=== PATIENT | male | born 1980 | race Caucasian/White ===

== ENCOUNTER 2020-08-22 13:39 | Outpatient (REF) | payer MEDICAID, SELFPAY ==
[2020-08-22 14:33] LABS: MANUAL DIFF FLAG NO
[2020-08-22 14:37] LABS: Basophils Percent Auto 0.4 % (0-2); Eosinophils Absolute Auto 0.1 X10*3/uL (0.0-0.4); Eosinophils Percent Auto 0.8 % (0-4); Hematocrit 45.6 % (42-52); Hemoglobin 15.1 g/dl (14.0-18.0); Imm Gran Abs Auto 0.02 X10*3/uL (0.00-0.03); Imm Gran Pct Auto 0.3 % (0.0-0.4); Lymphocytes Absolute Auto 1.7 X10*3/uL (1.2-4.9); Lymphocytes Percent Auto 22.7 % (20-40); Mean Corpuscular HGB Conc 33.1 g/dl (31.0-36.0); Mean Corpuscular Hemoglobin 27.8 pg (27.0-33.0); Mean Corpuscular Volume 83.8 fL (80-98); Mean Platelet Volume 9.8 fL (9.4-12.4); Monocytes Absolute Auto 0.5 X10*3/uL (0.1-1.2); Monocytes Percent Auto 7.3 % (2-11); Neutrophils Absolute Auto 5.1 X10*3/uL (2.0-8.3); Neutrophils Percent Auto 68.5 % (45-73); Platelet Count 297 X10*3/uL (160-400); Red Blood Count 5.44 X10*6/uL (4.60-5.80); Red Cell Distribution Width 12.6 % (11.0-16.0); White Blood Count 7.4 X10*3/uL (4.8-10.8)
[2020-08-22 15:40] LABS: Alanine Aminotransferase 19 U/L (0-40); Albumin Level 4.6 g/dL (3.5-5.0); Alkaline Phosphatase 94 U/L (39-117); Anion Gap 12 (12-20); Aspartate Amino Transferase 17 U/L (5-37); Bilirubin Direct 0.3 mg/dL (0.0-0.5); Bilirubin Total 0.9 mg/dL (0.0-1.0); Carbon Dioxide 32 mmol/L (22-29); Chloride 101 mmol/L (96-108); Potassium 4.1 mmol/l (3.3-5.1); Sodium 141 mmol/L (135-145); Total Protein 7.4 g/dL (6.5-8.0)
[2020-08-29 02:47] LABS: JCV Antibody POSITIVE; JCV Index Value 1.15
== END 2020-08-22 13:40 | disposition home or self-care (01) ==
LOC: HO.LAB 13:39
PROVIDERS: PCP Family Medicine; Visit Provider Psychiatry & Neurology Neurology
DX: G35 Multiple sclerosis (principal)
CPT/HCPCS: 36415; 80051; 80076; 85025; 86711

== ENCOUNTER 2021-02-19 11:29 | Outpatient (REF) | payer MEDICAID, SELFPAY ==
[2021-02-19 12:17] LABS: MANUAL DIFF FLAG NO
[2021-02-19 12:25] LABS: Basophils Percent Auto 0.5 % (0-2); Eosinophils Percent Auto 0.5 % (0-4); Hematocrit 43.8 % (42-52); Hemoglobin 14.5 g/dl (14.0-18.0); Imm Gran Abs Auto 0.02 X10*3/uL (0.00-0.03); Imm Gran Pct Auto 0.3 % (0.0-0.4); Lymphocytes Absolute Auto 1.5 X10*3/uL (1.2-4.9); Lymphocytes Percent Auto 25.1 % (20-40); Mean Corpuscular HGB Conc 33.1 g/dl (31.0-36.0); Mean Corpuscular Hemoglobin 27.9 pg (27.0-33.0); Mean Corpuscular Volume 84.2 fL (80-98); Mean Platelet Volume 9.9 fL (9.4-12.4); Monocytes Absolute Auto 0.4 X10*3/uL (0.1-1.2); Monocytes Percent Auto 7.3 % (2-11); Neutrophils Absolute Auto 3.9 X10*3/uL (2.0-8.3); Neutrophils Percent Auto 66.3 % (45-73); Platelet Count 286 X10*3/uL (160-400); Red Cell Distribution Width 12.4 % (11.0-16.0); White Blood Count 5.9 X10*3/uL (4.8-10.8)
[2021-03-02 23:47] LABS: JCV Antibody POSITIVE; JCV Index Value 1.09
== END 2021-02-19 11:30 | disposition home or self-care (01) ==
LOC: HO.LAB 11:29
PROVIDERS: PCP Family Medicine; Visit Provider Psychiatry & Neurology Neurology
DX: G35 Multiple sclerosis (principal)
CPT/HCPCS: 36415; 85025; 86711

== ENCOUNTER 2022-02-18 10:29 | Outpatient (REF) | payer MEDICAID, SELFPAY ==
[2022-02-18 10:49] LABS: MANUAL DIFF FLAG NO
[2022-02-18 11:56] LABS: Basophils Percent Auto 0.4 % (0-2); Eosinophils Absolute Auto 0.1 X10*3/uL (0.0-0.4); Eosinophils Percent Auto 1.2 % (0-4); Hematocrit 44.6 % (42.0-52.0); Hemoglobin 14.5 g/dl (14.0-18.0); Imm Gran Abs Auto 0.02 X10*3/uL (0.00-0.03); Imm Gran Pct Auto 0.4 % (0.0-0.4); Lymphocytes Absolute Auto 1.8 X10*3/uL (1.2-4.9); Mean Corpuscular HGB Conc 32.5 g/dl (31.0-36.0); Mean Corpuscular Hemoglobin 27.3 pg (27.0-33.0); Mean Corpuscular Volume 83.8 fL (80.0-98.0); Mean Platelet Volume 10.2 fL (9.4-12.4); Monocytes Absolute Auto 0.4 X10*3/uL (0.1-1.2); Monocytes Percent Auto 7.3 % (2-11); Neutrophils Absolute Auto 2.8 x10*3/uL (2.0-8.3); Neutrophils Percent Auto 55.7 % (45-73); Platelet Count 238 X10*3/uL (160-400); Red Blood Count 5.32 X10*6/uL (4.60-5.80); Red Cell Distribution Width 12.5 % (11.0-16.0); White Blood Count 5.1 X10*3/uL (4.8-10.8)
[2022-02-18 12:24] LABS: Alanine Aminotransferase 19 U/L (0-40); Albumin Level 4.5 g/dL (3.5-5.0); Alkaline Phosphatase 82 U/L (39-117); Aspartate Amino Transferase 20 U/L (5-37); Bilirubin Direct 0.3 mg/dL (0.0-0.5); Bilirubin Total 0.7 mg/dL (0.0-1.0); Total Protein 7.2 g/dL (6.5-8.0)
== END 2022-02-18 10:30 | disposition home or self-care (01) ==
LOC: HO.LAB 10:29
PROVIDERS: Visit Provider Psychiatry & Neurology Neurology
DX: G35 Multiple sclerosis (principal)
CPT/HCPCS: 36415; 80076; 85025

== ENCOUNTER 2023-12-22 13:00 | Outpatient (REF) | payer OTHER, SELFPAY ==
[2023-12-22 13:13] LABS: MANUAL DIFF FLAG NO
[2023-12-22 14:19] LABS: Basophils Percent Auto 0.4 % (0-2); Eosinophils Absolute Auto 0.1 X10*3/uL (0.0-0.4); Eosinophils Percent Auto 2.1 % (0-4); Hematocrit 46.8 % (42.0-52.0); Hemoglobin 15.4 g/dl (14.0-18.0); Imm Gran Abs Auto 0.01 X10*3/uL (0.00-0.03); Imm Gran Pct Auto 0.2 % (0.0-0.4); Lymphocytes Absolute Auto 1.7 X10*3/uL (1.2-4.9); Lymphocytes Percent Auto 32.9 % (20-40); Mean Corpuscular HGB Conc 32.9 g/dl (31.0-36.0); Mean Corpuscular Hemoglobin 27.3 pg (27.0-33.0); Mean Platelet Volume 9.6 fL (9.4-12.4); Monocytes Absolute Auto 0.3 X10*3/uL (0.1-1.2); Monocytes Percent Auto 6.4 % (2-11); Platelet Count 276 X10*3/uL (160-400); Red Blood Count 5.64 X10*6/uL (4.60-5.80); Red Cell Distribution Width 12.8 % (11.0-16.0); White Blood Count 5.2 X10*3/uL (4.8-10.8)
[2023-12-22 14:31] LABS: Alanine Aminotransferase 26 U/L (0-40); Albumin Level 4.4 g/dL (3.5-5.0); Alkaline Phosphatase 103 U/L (39-117); Anion Gap 12 (12-20); Aspartate Amino Transferase 22 U/L (5-37); Bilirubin Direct 0.2 mg/dL (0.0-0.5); Bilirubin Total 0.6 mg/dL (0.0-1.0); Blood Urea Nitrogen 15 mg/dL (9-16); Calcium 9.7 mg/dL (8.4-10.2); Carbon Dioxide 33 mmol/L (22-29); Chloride 102 mmol/L (96-108); Estimated Glomerular Filt Rate > 60; Glucose Random 93 mg/dL (60-115); Potassium 3.8 mmol/L (3.3-5.1); Sodium 143 mmol/L (135-145); Total Protein 7.5 g/dL (6.5-8.0)
[2023-12-25 22:33] LABS: JCV Antibody POSITIVE; JCV Index Value 2.35
== END 2023-12-22 13:01 | disposition home or self-care (01) ==
LOC: HO.LAB 13:00
PROVIDERS: Visit Provider Psychiatry & Neurology Neurology
DX: G35 Multiple sclerosis (principal)
CPT/HCPCS: 36415; 80048; 80076; 85025; 86711

== ENCOUNTER 2024-03-13 18:01 | Emergency (ER) | payer OTHER, SELFPAY ==
[2024-03-13 18:05] VITALS: BP 131/92; PULSE 81; RESP 14; TEMP 36.4; O2SAT 96; BMI 22.8
--- NOTE | 2024-03-13 21:24 | ED_ITS ---
History of Present Illness General Chief Complaint: Epistaxis Stated Complaint: rt side nose bleed 3x todays Time Seen by Provider: 03/13/24 21:22 Source: patient Mode of arrival: ambulatory Limitations: no limitations History of Present Illness HPI Narrative: Patient with chronic allergic rhinitis uses Flonase nasal spray noticed bleeding from the right nostril a week ago and again today. No history of epistaxis in the past no bleeding from any other place at this time on arrival patient's bleeding has decreased and almost stopped Related Data Allergies Allergy/AdvReac Type Severity Reaction Status Date / Time Penicillins [PENICILLINS] Allergy Unknown UNKNOWN Verified 03/13/24 18:11 Review of Systems Review of Systems: Yes all other systems are reviewed and are negative [facility] Social History Social History Advance Directives: No Advance Directives Information Provided: No Do you have a plan to hurt others: No Plan Physical Exam Vital Signs: Vital Signs: Last Vital Signs Temp 97.6 F 03/13/24 22:52 Pulse 81 03/13/24 22:52 Resp 14 03/13/24 22:52 BP 131/92 H 03/13/24 22:52 Pulse Ox 96 03/13/24 22:52 O2 Del Method Room Air 03/13/24 22:52 BMI result Body Mass Index 22.8 Appearance: Alert. Oriented X3. No acute distress. Eyes: No pallor or icterus ENT: Pharynx normal. Oral Mucosa moist mild oozing from the right nostril anterior septum area Neck: Normal inspection. Neck supple. CVS: Normal heart rate and rhythm. Pulses normal. Respiratory: No respiratory distress. Equal air entry bilateral, Abdomen: Soft and nontender. Skin: Skin warm and dry. Normal skin color. Normal skin turgor. Extremities: No lower extremity edema. No calf tenderness Neuro: Oriented X 3. Medications Administered Discontinued Medications Generic Name Dose Route Start Last Admin Trade Name Freq PRN Reason Stop Dose Admin Silver Nitrate 1 appl 03/13/24 21:36 03/13/24 21:48 Silver Nitrate Applicator Stick..Ea. TOPICAL 03/13/24 21:37 1 appl ONCE ONE Administration Medical Decision Making Medical Decision Making MDM Narrative: Patient with anterior epistaxis with minor oozing silver nitrate was used to cauterize the area patient has stopped bleeding Procedures Epistaxis Control Nostril: Yes right Direct inspection: Yes anterior source identified Direct inspection method: Yes otoscope Epistaxis treatment: Yes silver nitrate cautery Results of treatment: Yes bleeding controlled Complications: Yes none Discharge Plan Discharge Clinical Impression: Epistaxis Patient Disposition: Home, Self-Care Instructions: Nosebleed (ED) Additional Instructions: Local care as advised Interventions: ED Discharge Assessment Last Done: 03/13/24 22:52 Discharge Date/Time: 03/13/24 22:53 Print Language: Belarusian
[2024-03-13] MEDS: Silver Nitrate Applicator STICK..EA. 1 APPL TOPICAL (21:48)
[2024-03-13 22:52] VITALS: BP 131/92; PULSE 81; RESP 14; TEMP 36.4; O2SAT 96
== END 2024-03-13 22:53 | disposition home or self-care (01) ==
PROVIDERS: Emergency Provider Internal Medicine; PCP Family Medicine
DX: R04.0 Epistaxis (principal)
CPT/HCPCS: 30901; 99282; 99283

== ENCOUNTER 2025-05-23 11:53 | Outpatient (AMB) | payer OTHER, MEDICAID, SELFPAY ==
--- OUTSIDE RECORDS SUMMARY | 2025-05-17 23:59 | XMS_ITS | Continuity of Care Document ---
Author Organization [facility] Address [address] [place] [address]- Care Team Providers Care Dealership Manager Name Role Phone Parker Rocha MD Primary Care Physician [id number] Date(s[facility] 05/10/25 - 05/17/25 [facility] [address] [place] [address]- Encounter Diagnosis Low energy(Discharge Diagnosis) - 05/10/25 Attending Physician: Parker Rocha MD Encounter Type: Office Visit Allergies, Adverse Reactions, Alerts Substance Criticality Severity Reaction Reaction Severity Status topiramate anxiety Active penicillins Active Immunizations Given and Recorded Vaccine Date Status Refusal Reason SARS-CoV-2 (COVID-19) mRNA BNT-162b2 vac 10/11/21 Recorded SARS-CoV-2 (COVID-19) mRNA BNT-162b2 vac 03/11/21 Recorded SARS-CoV-2 (COVID-19) mRNA BNT-162b2 vac 02/18/21 Recorded tetanus-diphtheria toxoids (Td) 1 01/09/20 Given tetanus-diphtheria toxoids (Td) 05/24/10 Recorded influenza virus vaccine, inactivated 08/29/16 Give n influenza virus vaccine, inactivated 12/14/12 Juan rded hepatitis B adult vaccine 12/06/10 Recorded hepatitis B adult vaccine 10/08/10 Recorded hepatitis B adult vaccine 05/24/10 Recorded Measles/Mumps/Rubella Virus Vaccine 05/24/10 Recor ded Measles/Mumps/Rubella Virus Vaccine 04/23/10 Recor ded tetanus/diphtheria/pertussis, acel(Tdap) 04/23/10 Recorded 1Result Comment: [id number] Medications cholecalciferol 1000 intl units oral capsule 1 capsule = 1,000 International_Units, By Mouth, Daily, # 90 capsule, 3 Refills, Maintenance, 08/29/16 10:36:07 AM EDT, Capsule, [id number] Start Date: 08/29/16 Stop Date: 08/24/17 Status: Ordered Quantity: 90.0 Unit: capsule Repeat number: 4 diclofenac 3% topical gel = 0.5 Gm, Topically, 2 times a day, # 50 Gm, 1 Refills, Maintenance, 02/16/25 2:07:00 PM EDT, Gel, [id number], Partial fill upon patient request if the prescription is for a schedule II opioiddrug., 0.5 Gm Topically 2 times a day, 148.5, cm, 02/16/25 13:34:00 EDT, Height Start Date: 02/16/25 Status: Ordered Quantity: 50.0 Unit: g Repeat number: 2 Indications: Chest pain, unspecified; Tecfidera 240 mg oral delayed release capsule 1 capsule = 240 mg, By Mouth, 2 times a day, 0 Refills, Maintenance, 09/22/17 3:57:37 PM EST Start Date: 09/22/17 Status: Ordered Repeat number: 1 Problem List Condition Confirmation Course Effective Dates Status H ealth Status Informant Developmental dysplasia of hip Confirmed Active History of poliomyelitis Confirmed Active Migraine Confirmed Active Multiple sclerosis Confirmed Active 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 Severe scoliosis Confirmed Active Diagnosis Diagnosis Type Effective Dates Health Status Cl[facility] Service Informant Low energy Discharge Diagnosis 05/10/25 Social History Social History Type Response Smoking Status Never smoker entered on: 03/22/18 Sex Sex Representation Male (finding) Patient Care team information Care Team Personnel Name: Parker Rocha MD Position: [facility] Physician - Primary Care Member Role: PCP Address: [address] [place] [address] Telecom: Care Team Related Persons Name: TK MADSEN Name: HELENA ALMENDAREZ Name: ROSALINDA SIFUENTES Insurance Providers Guarantor name: JUSTIN MODI Health Plan Information #: 1 Payer: [employer] [facility] Payer Identifier: STELLA Member Number: [id number] Group Number: [id number] Subscriber Identifier: [id number] Relationship to Subscriber: self Coverage Type: Commercial Indemnity Coverage Verification Date: NA Telecom: NA Address: Health Plan Information #: 2 Payer: [facility] [employer] Payer Identifier: NA Member Number: [id number] Group Number: Subscriber Identifier: [id number] Relationship to Subscriber: self Coverage Type: MEDICAID Coverage Verification Date: NA Telecom: NA Address: NA
--- NOTE | 2025-05-23 11:55 | A.OFFVIS_ITS ---
Intake Visit Reasons: MS Allergies Penicillins (PENICILLINS) Allergy (Unknown, Verified 05/23/25 12:16) UNKNOWN Medication List - Last Reconciled 05/23/25 by Marii Acuña CNP dimethyl fumarate (Tecfidera) 240 mg PO BID HPI Comments Details: He was doing okay. He was still having GI upset with Tecfidera if he does not have a full stomach and has been taking medication once a day about 5-6x/week instead of twice a day due to GI side effect. He still occasionally gets an itchy rash. Previously, he wanted to continue with Tecfidera and would consider switching to injectable form. No new MS symptoms. No new weakness. Left facial numbness resolved. No numbness in bottom of left foot any more. It may happen only if he is overtired or stressed. Fatigue has improved. Sleep was okay. Few occasional migraines, which may be triggered by stress or missing meal. Using Excedrin as needed which helps. GI work up was negative. Occasional low back sharp pains and tightness in back muscles. Considering spinal surgery for scoliosis. Had a son in 2023. All MRIs were reviewed, including C spine from Dec and the brain MRI from 06/18/17. In August 2016 he woke up with vertigo, nausea and ataxia but continued for 7-10 days and then resolved. In September 2016 he had an MRI of the brain which was consistent with MS. A second MRI of the brain was done in December of 2016 and showed some additional lesions. No gadolinium was used either. Subsequently, in March 2017 he had MRI of his cervical, thoracic and lumbar spine which was inadequate because of severe kyphosis and scoliosis. He did not have an MRI with gadolinium of the brain. He was seen by Dr. Sanjana Roach at the [facility] and the was not started any medications at this time.He then had an episode where he felt some numbness in his tongue, as well as some left-sided numbness which has gotten better. He has no previous neurological symptoms prior to August of 2016. His energy level is good. No problems with his bladder or bowel control. [facility] Medical History (Updated 05/23/25 @ 11:59 by Marii Acuña CNP) Migraine Scoliosis Multiple sclerosis Review of Systems Const Denies chills, Denies daytime sleepiness, Denies difficulty sleeping, Denies fatigue, Denies fever(s), Denies frequent falls, Denies headache(s), Denies increased appetite, Denies poor appetite, Denies snoring, Denies weakness, Denies weight gain and Denies weight loss Eyes Denies loss of vision ENT Denies vertigo, Denies dizziness, Denies headache(s) and Denies neck pain Card Denies chest pain at rest, Denies chest pain with activity, Denies syncope, Denies leg edema, Denies palpitations, Denies dyspnea and Denies dyspnea on exertion Resp Denies cough, Denies dyspnea, Denies dyspnea on exertion and Denies snoring GI Denies abdominal pain, Denies constipation, Denies heartburn, Denies diarrhea and Denies nausea Denies urinary frequency, Denies urinary incontinence and Denies urinary urgency Musc Denies abnormal gait, Reports back pain, Denies myalgias, Denies arthralgias, Denies neck pain, Denies numbness and Denies tingling Neuro Denies abnormal gait, Denies vertigo, Denies dizziness, Denies syncope, Denies frequent falls, Denies headache(s), Denies lack of coordination, Denies loss of vision, Denies memory loss, Denies numbness, Denies Other visual disturbances, Denies restless legs, Denies seizure-like activity, Denies tingling, Denies paresthesias, Denies tremor(s) and Denies weakness Psych Denies anxiety, Denies depression, Denies auditory hallucinations, Denies memory loss and Denies visual hallucinations Endo Denies fatigue and Denies palpitations Physical Exam Const Other: General Appearance:? normal, in no acute distress. Heart:? S1, S2 normal, no murmurs. Lungs:? clear anteriorly and posteriorly. Musculoskeletal:? normal. Extremities:? no edema. Psych:? alert, oriented, cognitive function intact, cooperative with exam. Neuro Other: Abnormal Neurological Findings:?Kyphoscoliosis of the thoracic spine. Left shoulder abduction weakness. Atrophy of left deltoid and right leg. Weakness of dorsiflexion and plantarflexion of the right foot. Left-sided hyperreflexia in the upper and lower extremity with extensor plantar response Mental Status: alert and oriented X 3. Normal attention, orientation, memory, and affect. Cranial Nerves: Pupils are equal, round, and reactive to light. External ocular muscles are intact. Visual valles are full, no ptosis. Face is symmetrical, no facial weakness or droop. Facial sensations are normal. Tongue protrudes in midline. Palate elevates symmetrically. Shoulder shrugging is normal Motor Examination: As above. Straight Leg Raisin degrees. Sensory Exam: Normal light touch, temperature, pinprick, vibration, and joint- position sensations. Rhomberg sign is absent. Coordination: No ataxia. No titubation. Mpswza-ab-eqrm, jzuw-orns-wxov test, and rapid alternating movements were normal. Gait Exam: With limp Cerebellar Signs: Uvwvde-rq-gbnb and mogg-fg-onne is normal. No dysdiadochokinesia. Extrapyramidal System: No tremor, rigidity with normal facial expressions. No bradykinesia. No bradyphrenia. Normal arm swing and posture. No propulsion or retropulsion. Speech: Normal. No dysphasia or dysarthria. Results Reviewed Results Reviewed: MRI of the brain from September 2016 and December 2016 were reviewed. They show multiple flair hyperintensities in the right cerebral peduncle middle and superior. Multiple periventricular lesions the Feliz's fingers and a relatively large lesion in the deep white matter in the left frontoparietal region. There appears to be a couple of additional lesions between September and December. MRI of the spine was in adequate. 06/18/17 MRI brain shows multiple periventricular and brainstem lesions of MS . No enhancing lesions. Follow up MRI brain an dcervical spine with and without Bulmaro prior to next visit. 08/26 C spine MRI shows no MS lesions. Tiny syrinx unchanged 08/26 Brain MRI c/w MS with stable lesions and possibly 2 new lesions in left frontal and kristen region. No enhancement. 01/24/20 Brain MRI stable with no new lesions or enhancement 02/26/21 Labs Ok . JCV 1.09 08/25/23 MRI brain stable with no enhancing lesions. Assessment & Plan Assessment & Plan (1) Multiple sclerosis: Code(s): G35 - Multiple sclerosis Category: Medical Plan: He was having GI side effect with Tecfidera, along with occasional itchy rash, and was taking medication once a day most days of the week instead of twice a day as prescribed due to GI side effects if he did not have full stomach, and was therefore not getting full benefit of medication. He denied any new or worsening MS symptoms. Other DMTs for MS discussed, including injectable or IV. He was not interested in self-injectable medications. He would consider IV medication such as Tysabri or Ocrevus, but was concerned about possible side effects. He felt he was managing well on current medication despite having side effects impacting compliance. MRI brain with and without contrast ordered to determine if there are any new lesions and discuss medications further at follow up. (2) Migraine: Code(s): G43.909 - Migraine, unspecified, not intractable, without status migrainosus Category: Medical Qualifiers: Intractability: not intractable Migraine type: unspecified Status migrainosus presence: without status migrainosus Qualified Code(s): G43.909 - Migraine, unspecified, not intractable, without status migrainosus Plan: May continue Excedrin as needed. Orders: Orders MR head/brain wo/w con Today G35 - Multiple sclerosis Coding Level of Care Code Est Pt Level 4 (36388) Diagnoses Multiple sclerosis G35 Migraine without status migrainosus, not intractable, unspecified migraine type G43.909 Intractability: not intractable Migraine type: unspecified Status migrainosus presence: without status migrainosus
--- OUTSIDE RECORDS SUMMARY | 2025-05-23 13:11 | XMS_ITS | Clinical Summary ---
Author Organization [facility] [place] [address] Care Team Providers Care Automatic Tire Tester Name Role Phone Kiley Donis MD Primary Care Provider Medical History Medical History Date Comments Esophageal reflux DX:Esophageal reflux Bloating DX:Bloating H. pylori infection DX:H. pylori infection Social History Tobacco Use Types Packs/Day Years Used Date Smoking Tobacco: Never Assessed Sex and Gender Information Value Date Recorded Sex Assigned at Not on file Legal Sex Male 8:13 PM EST Gender Identity Not on file Sexual Orientation Not on file Obstetrics History Last Filed Vital Signs Vital Sign Reading Time Taken Comments Blood Pressure 108/68 12/24/2023 11:33 AM EST Pulse 68 10/23/2022 10:29 AM EST Temperature - - Respiratory Rate - - Oxygen Saturation - - Inhaled Oxygen Concentration - - Weight 53.3 kg (117 lb 6.4 oz) 12/24/2023 11:33 AM EST Height 152.4 cm (5') 12/24/2023 11:33 AM EST Body Mass Index 22.93 12/24/2023 11:33 AM EST Plan of Treatment Health Maintenance Due Date Last Done Comments DTaP,Tdap,and Td Vaccines (1 - Tdap) 2001 Hepatitis B Vaccines (1 of 3 - 19+ 3-dose series) 2001 Cholesterol Screening (Lipid Panel) 11/01/2022 Depression Screening 11/01/2022 HIV Screening 11/01/2022 Hepatitis C Screening 11/01/2022 Social Influencers of Health Screening 11/01/2022 COVID-19 Vaccine ( - 2023-2 5 season) 2024 Influenza Vaccine (#1) 2025 HIB Vaccines Aged Out No longer eligi ble based on patient's age to complete this topic HPV Vaccines Aged Out No longer eligi ble based on patient's age to complete this topic Hepatitis A Vaccines Aged Out No long er eligible based on patient's age to complete this topic IPV Vaccines Aged Out No longer eligi ble based on patient's age to complete this topic MMR Vaccines Aged Out No longer eligi ble based on patient's age to complete this topic Meningococcal ACWY Vaccine Aged Out N o longer eligible based on patient's age to complete this topic Meningococcal B Vaccine Aged Out No l onger eligible based on patient's age to complete this topic Pneumococcal Vaccine: Pediat rics (0 to 5 Years) and At-Risk Patients (6 to 49 Years) Aged Out No longer eligible b ased on patient's age to complete this topic RSV Immunization Patients Un dali 20 months Aged Out No longer eligible b ased on patient's age to complete this topic Varicella Vaccines Aged Out No longer eligible based on patient's age to complete this topic Care Teams Automatic Tire Tester Relationship Specialty Start Date End Date Kiley Donis MD PCP - General Internal Medicine 09/02/22
--- OUTSIDE RECORDS SUMMARY | 2025-05-23 13:11 | XMS_ITS | Clinical Summary ---
Author Organization [facility] Address [address] [place] [address] Care Team Providers Care Forepart Reducer Name Role Phone Glenis Maria PA-C Primary Care Provider [phone] Source Comments PLEASE NOTE, if this patient is a minor, it may be UNLAWFUL to discuss sensitive information that is contained in these records (such as FAMILY PLANNING, MENTAL HEALTH or SUBSTANCE ABUSE) with the minor patient's parent or other person without the patient's specific authorization.[facility] Allergies Active Allergy Reactions Criticality Noted Date Comments Penicillins 10/24/2014 Medications aspirin-acetamin ophen-caffeine (EXCEDRIN MIGRAINE) 250-250-65 mg per tabletIndication s:Bilateral headaches Take 1 Tab by mouth every 6 (six) hours as needed for pain. 60 Tab 1 09/17/2015 Active Active Problems Problem Noted Date Diagnosed Date History of nephrolithiasis, left 201201/25/2015 Overview (01/25/2015): F/u urology. Post-polio muscle weakness 10/24/2014 Overview (10/24/2014): History of left hip surgery 1984 in [place] Chronic left hip pain 10/24/2014 Migraines Severe dextroscoliosis of thoracolumbar junction Overview (01/18/2016): Began at age 5 after being dx with polio. MRI Lumbar spine 01/21/2013 = severe dextroscoliosis thoracolumbar junction Immunizations Immunization Administration Dates Next Due Hep B, Adult/Adol (FEXIONZ-K-ZSPRG/RECOMBIVAX-ADULT) 12/06/2010,10/08/2010,05/24/2010 INFLUENZA, SEASONAL, INJECTABLE 12/14/2012 MMR (MMR II/Priorix) 05/24/2010,04/23/2010 TDAP 04/23/2010 Td (adult),2 Lf tetanus toxo id (TDVAX), preservative free 05/24/2010 Family History Relation Name Status Comments Father Alive Mother Alive Social History Tobacco Use Types Packs/Day Years Used Date Smoking Tobacco: Former Smokeless Tobacco: Never Comments:smoked very very li ghtly in the past 2012 Alcohol Use Standard Drinks/Week Comments No 0 (1 standard drink = 0.6 oz pur e alcohol) Social Connections Answer Date Recorded Social Connections and Isolation 0 07/02/2019 Financial Resource Strain Answer Date R ecorded Financial Resource Strain 0 2018 Stress Answer Date Recorded Stress 0 07/02/2019 Physical Activity Answer Date Recorded Physical Activity 0 07/02/2019 Food Insecurity Answer Date Recorded Food 0 07/02/2019 Transportation Needs Answer Date Record ed Transportation 0 07/02/2019 Housing Stability Answer Date Recorded Housing 0 07/02/2019 Safety and Environment Answer Date Juan rded Safety 0 07/02/2019 Utilities Answer Date Recorded Utilities 0 07/02/2019 Employment Answer Date Recorded Employment 0 07/02/2019 Sex and Gender Information Value Date Recorded Sex Assigned at Not on file Legal Sex Male 11:36 AM PDT Gender Identity Not on file Sexual Orientation Not on file Occupation Industry Job Start Date Job End Date [employer] Not on file Not on file Not on file Last Filed Vital Signs Vital Sign Reading Time Taken Comments Blood Pressure 124/80 01/18/2016 9:06 AM EST Pulse 80 01/18/2016 9:06 AM EST Temperature 36.4 C (97.5 F) 01/18/2016 9:06 AM EST Respiratory Rate 14 01/18/2016 9:06 AM EST Oxygen Saturation - - Inhaled Oxygen Concentration - - Weight 54 kg (119 lb) 01/18/2016 9:06 AM EST Height 149.9 cm (4' 11 ) 01/18/2016 9:06 AM EST Body Mass Index 24.04 01/18/2016 9:06 AM EST Plan of Treatment Not on file Insurance [place] MEDICAID Care Teams Forepart Reducer Relationship Specialty Start Date End Date Glenis Maria PA-C [address] [place] [address] PCP - General 01/04/19
== END 2025-05-23 12:33 | disposition home or self-care (01) ==
LOC: HO.HSM 11:53
PROVIDERS: PCP Family Medicine; Referring Provider Family Medicine; Visit Provider Registered Nurse
DX: G35 Multiple sclerosis (principal); G43.909 Migraine, unspecified, not intractable, without status migrainosus
CPT/HCPCS: 99214

== ENCOUNTER 2025-07-07 10:12 | Outpatient (AMB) | payer OTHER, MEDICAID, SELFPAY ==
--- OUTSIDE RECORDS SUMMARY | 2010-09-20 01:00 | XMS_ITS | Encounter Summary ---
Author Organization [facility] Address [address] [facility] [address] [place] [phone] Phone Care Team Providers Care Print Line Tailer Name Role Phone Unavailable Primary Care Provider Unavailabl e Encounter Details Date Type Department Care Team ([facility] Contact Info) Description 09/20/2010 Hospital Encounter [facility] 55 [place] [address] Jorge Schultz MD, PhD [address] [place] [address] Social History Tobacco Use Types Packs/Day Years [...] OUTSIDE(NO INTERPRETATION) (09/20/2010 12:00 AM EST) Narrative [facility] - 02/02/2019 12:01 PM EDT This study is for PACS storage only and not for interpretation. us Jorge Schultz MD, PhD IMG OUTSIDE IMAGING W/OUT IN TERPRETATION Final Result [facility] documented in this encounter Visit Diagnoses Not on filedocumented in this encounter Additional Source Comments The information contained in this document represents components of the legal health record. It is not the complete legal health record.[facility]
--- OUTSIDE RECORDS SUMMARY | 2010-12-24 01:00 | XMS_ITS | Encounter Summary ---
Author Organization [facility] Address [address] [facility] [address] [place] [address] Phone Care Team Providers Care Banquet Bartender Name Role Phone Unavailable Primary Care Provider Unavailabl e Encounter Details Date Type Department Care Team ([facility] Contact Info) Description 12/24/2010 Hospital Encounter [facility] 55 [place] [address] Jorge Schultz MD, PhD [address] [place] [address] [email or web address] Social History Tobacco Use Types Packs/Day Years [...] Name Priority Date/Time Associated Diagnosis Comments XR LOWER EXTREMITY OUTSIDE (NO INTERPRETATION) Routine 12/24/2010 12:00 AM EST documented in this encounter Results * XR Lower Extremity Outside (No Interpretation) (12/24/2010 12:00 AM EST) Narrative [facility] [place] [place] - 02/02/2019 12:01 PM EDT This study is for PACS storage only and not for interpretation. us Jorge Schutlz MD, PhD IMG OUTSIDE IMAGING W/OUT IN TERPRETATION Final Result [facility] [place] [place] documented in this encounter Visit Diagnoses Not on filedocumented in this encounter Additional Source Comments The information contained in this document represents components of the legal health record. It is not the complete legal health record.[facility]
--- OUTSIDE RECORDS SUMMARY | 2013-01-19 | XMS_ITS | Encounter Summary ---
Author Organization [facility] Address [address] [facility] [address] [place] [address] Phone Care Team Providers Care Trainer Name Role Phone Unavailable Primary Care Provider Unavailabl e Encounter Details Date Type Department Care Team ([facility] Contact Info) Description 01/19/2013 Hospital Encounter [facility] 55 [place] [address] Jorge Schultz MD, PhD [address] [place] [address] Social History Tobacco Use Types Packs/Day Years [...] OUTSIDE(NO INTERPRETATION) (01/19/2013 12:00 AM EDT) Narrative [facility] [place] - 02/02/2019 12:00 PM EDT This study is for PACS storage only and not for interpretation. us Jorge Schultz MD, PhD IMG OUTSIDE IMAGING W/OUT IN TERPRETATION Final Result [facility] [place] documented in this encounter Visit Diagnoses Not on filedocumented in this encounter Additional Source Comments The information contained in this document represents components of the legal health record. It is not the complete legal health record.[facility]
--- OUTSIDE RECORDS SUMMARY | 2013-01-21 | XMS_ITS | Encounter Summary ---
Author Organization [facility] Address [address] [facility] [address] [place] [address] Phone Care Team Providers Care Procedures Rn Name Role Phone Unavailable Primary Care Provider Unavailabl e Reason for Visit * MRI/CAT Scan - Closed Specialty Diagnoses / Procedures Referred By Sharmin t Referred To Contact Procedures MRI Spine (Bone) Outside (No Interpretation) Jorge Schultz MD, PhD [address] [place] [address] Phone: tel: fax: mailto:[email or web address] Referral ID Status Reason Start Date Expiration Date Visits Re quested Visits Authorized [id number] Closed 02/02/2019 02/02/2020 1 1 Encounter Details Date Type Department Care Team ([facility] st Contact Info) Description 01/21/2013 Hospital Encounter [facility] [address] [place] [address] Jorge Schultz MD, PhD [address] [place] [phone] [email or web address] Social History Tobacco Use Types Packs/Day Years [...] (No Interpretation) (01/21/2013 12:00 AM EDT) Narrative [facility] [place] [place] - 02/02/2019 12:00 PM EDT This study is for PACS storage only and not for interpretation. us Jorge Schultz MD, PhD IMG OUTSIDE IMAGING W/OUT IN TERPRETATION Final Result [facility] [place] [place] [facility] [place] documented in this encounter Visit Diagnoses Not on filedocumented in this encounter Additional Source Comments The information contained in this document represents components of the legal health record. It is not the complete legal health record.[facility]
--- OUTSIDE RECORDS SUMMARY | 2025-07-02 23:59 | XMS_ITS | Continuity of Care Document ---
Author Organization [facility] ter Address [address] [place] [address]- Care Team Providers Care Painter And Decorator Apprentice Name Role Phone Parker Rocha MD Primary Care Physician Encounter 07/01/25 - 07/02/[address] [address] Attending Physician: Not on Staff, Attending MD Referring Physician: Not on Staff, Referring MD Encounter Type: [facility] Allergies, Adverse Reactions, Alerts Substance Criticality Severity [...] ded tetanus/diphtheria/pertussis, acel(Tdap) 04/23/10 Recorded 1Result Comment: [id number] Medications cholecalciferol 1000 intl units oral capsule [...] kyphoscoliosis Confirmed Active Severe scoliosis Confirmed Active Social History Social History Type Response Smoking Status Never smoker entered on: 03/22/18 Sex Sex Representation Male (finding) Patient Care team information Care Team Personnel Name: Parker Rocha MD Position: [facility] Physician - Primary Care Member Role: PCP Address: [address] [place] [address] Telecom: Care Team Related Persons Name: TK MADSEN Name: HELENA ALMENDAREZ Name: ROSALINDA SIFUENTES Insurance Providers Guarantor name: [facility] [place] Plan Information #: 1 Payer: [facility] [employer] Payer Identifier: NA Member Number: [id number] Group Number: [id number] Subscriber Identifier: [id number] Relationship to Subscriber: self Coverage Type: Commercial Indemnity Coverage Verification Date: NA Telecom: NA Address: [facility] Plan Information #: 2 Payer: [employer] Payer Identifier: STELLA Member Number: [id number] Group Number: [id number] Subscriber Identifier: [id number] Relationship to Subscriber: self Coverage Type: MEDICAID Coverage Verification Date: NA Telecom: NA Address:
--- NOTE | 2025-07-07 10:21 | A.OFFVIS_ITS ---
Intake Visit Reasons: follow up after MRI Allergies Penicillins (PENICILLINS) Allergy (Unknown, Verified 05/23/25 12:16) UNKNOWN HPI Comments Details: He was here to review MRI results. He said he was going good and that everything is good. He initially said he had been taking Tecfidera twice a day since his last appointment, but later said he was taking medication twice a day about every other day, and once a day the other days. He still had some side effects of GI upset and occasional itchy rash that was better if he pre- medicated with Tylenol or ibuprofen, but he did not like to do this often. He denied any new MS symptoms, including new or worsening weakness, numbness or tingling, and fatigue. He denied any falls. At appointment on 05/23/2025, he reported ongoing GI upset with Tecfidera if he does not have a full stomach and had been taking medication once a day about 5- 6x/week instead of twice a day due to GI side effect. He also would still get occasional itchy rash. He denied new MS symptoms. No new weakness. Left facial numbness resolved. No numbness in bottom of left foot any more. It may happen only if he is overtired or stressed. Fatigue has improved. Sleep was okay. Few occasional migraines, which may be triggered by stress or missing meal. Using Excedrin as needed which helps. GI work up was negative. Occasional low back sharp pains and tightness in back muscles. Considering spinal surgery for scoliosis. Had a son on 11/14/2023. In 08/2016, he woke up with vertigo, nausea and ataxia, continued for 7-10 days and then resolved. In 09/2016, he had an MRI of the brain which was consistent with MS. A second MRI of the brain was done in 12/2016 and showed some additional lesions. No gadolinium was used either. Subsequently, in 03/2017, he had MRI of his cervical, thoracic and lumbar spine which was inadequate because of severe kyphosis and scoliosis. He did not have an MRI with gadolinium of the brain. He was seen by Dr. Sanjana Roach at the [facility] and the was not started any medications at that time. He then had an episode where he felt some numbness in his tongue, as well as some left-sided numbness which has gotten better. He has no previous neurological symptoms prior to 08/2016. No problems with his bladder or bowel control. [facility] Medical History (Updated 05/23/25 @ 11:59 by Marii Acuña CNP) Migraine Scoliosis Multiple sclerosis Review of Systems Const Denies chills, Denies daytime sleepiness, Denies difficulty sleeping, Denies fatigue, Denies fever(s), Denies frequent falls, Reports headache(s), Denies increased appetite, Denies poor appetite, Denies snoring, Denies weakness, Denies weight gain and Denies weight loss Eyes Denies loss of vision ENT Denies vertigo, Denies dizziness, Reports headache(s) and Denies neck pain Card Denies chest pain at rest, Denies chest pain with activity, Denies syncope, Denies leg edema, Denies palpitations, Denies dyspnea and Denies dyspnea on exertion Resp Denies cough, Denies dyspnea, Denies dyspnea on exertion and Denies snoring GI Denies abdominal pain, Denies constipation, Denies heartburn, Denies diarrhea and Denies nausea Denies urinary frequency, Denies urinary incontinence and Denies urinary urgency Musc Denies abnormal gait, Reports back pain, Denies myalgias, Denies arthralgias, Denies neck pain, Denies numbness and Denies tingling Neuro Denies abnormal gait, Denies vertigo, Denies dizziness, Denies syncope, Denies frequent falls, Reports headache(s), Denies lack of coordination, Denies loss of vision, Denies memory loss, Denies numbness, Denies Other visual disturbances, Denies restless legs, Denies seizure-like activity, Denies tingling, Denies paresthesias, Denies tremor(s) and Denies weakness Psych Denies anxiety, Denies depression, Denies auditory hallucinations, Denies memory loss and Denies visual hallucinations Endo Denies fatigue and Denies palpitations Physical Exam Const Other: General Appearance:? normal, in no acute distress. Heart:? S1, S2 normal, no murmurs. Lungs:? clear anteriorly and posteriorly. Musculoskeletal:? normal. Extremities:? no edema. Psych:? alert, oriented, cognitive function intact, cooperative with exam. Neuro Other: Abnormal Neurological Findings:?Kyphoscoliosis of the thoracic spine. Left shoulder abduction weakness. Atrophy of left deltoid and right leg. Weakness of dorsiflexion and plantarflexion of the right foot. Left-sided hyperreflexia in the upper and lower extremity with extensor plantar response Mental Status: alert and oriented X 3. Normal attention, orientation, memory, and affect. Cranial Nerves: Pupils are equal, round, and reactive to light. External ocular muscles are intact. Visual valles are full, no ptosis. Face is symmetrical, no facial weakness or droop. Facial sensations are normal. Tongue protrudes in midline. Palate elevates symmetrically. Shoulder shrugging is normal Motor Examination: As above. Sensory Exam: Normal light touch, temperature, pinprick, vibration, and joint- position sensations. Rhomberg sign is absent. Coordination: No ataxia. No titubation. Gait Exam: With limp Cerebellar Signs: [id number] is okay. Extrapyramidal System: No tremor, rigidity with normal facial expressions. No bradykinesia. No bradyphrenia. Normal arm swing and posture. No propulsion or retropulsion. Speech: Normal. No dysphasia or dysarthria. Results Reviewed Results Reviewed: MRI Brain W&WO at [facility] 07/01/2025: Multiple flair hyperintensities within the juxtacortical, periventricular, and deep cerebral white matter, and have increased in number. At least 14 new lesions are present with involvement of the peritemporal horn white matter and right posterior body of the corpus callosum. Several lesions are T1 hypointense, and the number of T1 low signal lesions has increased. 2 enhancing lesions within the deep cerebral white matter. 08/25/23 MRI brain stable with no enhancing lesions. 01/24/20 Brain MRI stable with no new lesions or enhancement 08/26 Brain MRI c/w MS with stable lesions and possibly 2 new lesions in left frontal and kristen region. No enhancement. 08/26 C spine MRI shows no MS lesions. Tiny syrinx unchanged 06/18/17 MRI brain shows multiple periventricular and brainstem lesions of MS. No enhancing lesions. MRI of the brain 09/2016 and 12/2016: multiple flair hyperintensities in the right cerebral peduncle middle and superior. Multiple periventricular lesions the Feliz's fingers and a relatively large lesion in the deep white matter in the left frontoparietal region. There appears to be a couple of additional lesions between September and December. MRI of the spine was inadequate. 02/26/21 Labs Ok . JCV 1.09 Assessment & Plan Assessment & Plan (1) Multiple sclerosis: Code(s): G35 - Multiple sclerosis Category: Medical Plan: MRI results reviewed and significance of findings reviewed with patient in detail - multiple new lesions (at least 14 new lesions with involvement of the peritemporal horn white matter and right posterior body of the corpus callosum and increase number of T1 hypointense lesions), with two enhancing lesions - which if left inadequately treated will lead to permanent disability, up to/including paralysis and/or . He was prescribed Tecfidera, which he started in 2018, but he was not taking medication twice a day as prescribed, and has been taking medication once a day most days of the week for long time due to side effects of GI upset and occasional itchy rash. He educated on the purpose/use of DMTs in this condition, and Tecfidera was no longer working or appropriate choice given most recent MRI findings. He was educated on other DMTs available, including Kesimpta and Ocrevus. He was educated on their effectiveness, use, and side effects. He was very concerned about potential side effects of treatment, and risks vs benefits reviewed. He was educated on the importance of starting effective treatment and risks of delaying or refusing treatment, including permanent disability, up to/including paralysis and/or . Given enhancing lesions, recommend IV Solu-Medrol 1g x3 days, which he declined. He wanted some time to think about other DMTs discussed, and information was given where he could read more about this condition and its treatment online. He would call office early next week with decision on treatment. Labs ordered. Referral to [facility] in [facility] for second opinion. (2) Migraine: Code(s): G43.909 - Migraine, unspecified, not intractable, without status migrainosus Category: Medical Qualifiers: Intractability: not intractable Migraine type: unspecified Status m igrainosus presence: without status migrainosus Qualified Code(s): G43.909 - Migraine, unspecified, not intractable, without status migrainosus Plan: May continue Excedrin as needed. Orders: Orders Hepatitis B Profile Today G35 - Multiple sclerosis Liver Panel Today G35 - Multiple sclerosis T Spot TB Today G35 - Multiple sclerosis Complete Blood Count Auto Diff Today G35 - Multiple sclerosis Immunoglobulins,IgG IgA IgM Today G35 - Multiple sclerosis JCV Ab w/Indx rflx Inhibition Today G35 - Multiple sclerosis Referrals Neurology Referral G35 - Multiple sclerosis Coding Level of Care Code Est Pt Level 5 (67232) Diagnoses Multiple sclerosis G35 Migraine without status migrainosus, not intractable, unspecified migraine type G43.909 Intractability: not intractable Migraine type: unspecified Status migrainosus presence: without status migrainosus
--- OUTSIDE RECORDS SUMMARY | 2025-07-07 10:53 | XMS_ITS | Clinical Summary ---
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 arthritis Neg Hx Scoliosis Neg Hx Social History Tobacco Use Types Packs/Day Years [...] PM EST Sexual Orientation Not on file Last Filed Vital Signs Vital Sign Reading Time Taken Comments Blood Pressure - - Pulse - - Temperature - - Respiratory Rate - - Oxygen Saturation - - Inhaled Oxygen Concentration - - Weight 51.7 kg (114 lb) 10/24/2021 11:16 AM EST Height 152.4 cm (5') 10/24/2021 11:16 AM EST Body Mass Index 22.26 10/24/2021 11:16 AM EST Plan of Treatment Health Maintenance Due Date Last Done Comments LIPID PANEL 1982 DEPRESSION SCREENING 1994 HEPATITIS C SCREENING 2000 HIV ONE-TIME SCREENING (18-6 5 YEARS) 2000 COVID-19 VACCINE (2 - 2023-2 5 season) 2024 02/18/2021 Adult Td,Tdap Booster 01/08/2030 01/09/2020 , 05/24/2010, 04/23/2010 SMOKING STATUS SCREENING (On ce After 26 Yrs) Completed 10/24/2021 HEPATITIS A VACCINES Aged Out No long er eligible based on patient's age to complete this topic HIB VACCINES Aged Out No longer eligi ble based on patient's age to complete this topic MENINGOCOCCAL VACCINES (ACWY) Aged Out No longer eligible based on patient's age to complete this topic MENINGOCOCCAL VACCINES (B) Aged Out N o longer eligible based on patient's age to complete this topic PNEUMOCOCCAL VACCINES (0-49 years) Aged Out No longer eligible b ased on patient's age to complete this topic Medical Devices Not on file Insurance [facility] HMO [employer] [facility] [employer] Care Teams Employment Manager Relationship Specialty Start Date End Date Parker Rocha MD [address] [facility] [address] [place] [address] PCP - General Family Medicine 04/12/18 Additional Source Comments The information contained in this document represents components of the legal health record. It is not the complete legal health record.[facility]
--- OUTSIDE RECORDS SUMMARY | 2025-07-07 10:54 | XMS_ITS | Encounter Summary ---
Author Organization [facility] Address [address] [place] [address] Phone Care Team Providers Care Mechanical Adjuster Name Role Phone Parker Rocha MD Primary Care Provide r Encounter Details Date Type Department Care Team ([facility] Contact Info) Description 09/11/2021 Procedure Pass MRI, [facility] [address] [place] [id number] Social History Tobacco Use Types Packs/Day Years Used Date Smoking Tobacco: Never Smokeless Tobacco: Never Sex and Gender Information Value Date Recorded Sex Assigned at Male 09/11/2021 7:19 AM EDT Legal Sex Male 12:53 PM EDT Gender Identity Male 09/19/2021 12:06 PM EST Sexual Orientation Not on file documented as of this encounter Plan of Treatment Not on file documented as of this encounter Visit Diagnoses Not on filedocumented in this encounter Care Teams Mechanical Adjuster Relationship Specialty Start Date End Date Parker Rocha MD [address] [facility] [address] [place] [address] PCP - General Family Medicine 04/12/18 documented as of this encounter Additional Source Comments The information contained in this document represents components of the legal health record. It is not the complete legal health record.[facility]
--- OUTSIDE RECORDS SUMMARY | 2025-07-07 10:54 | XMS_ITS | Encounter Summary ---
Author Organization [facility] Address [address] [place] [address] Phone Care Team Providers Care An/Ssn 2 4 Operator Name Role Phone Parker Rocha MD Primary Care Provide r Encounter Details Date Type Department Care Team ([facility] Contact Info) Description 02/02/2019 Procedure Pass [facility] [address] [place] [address] Social History Tobacco Use Types Packs/Day Years [...] on filedocumented in this encounter Care Teams An/Ssn 2 4 Operator Relationship Specialty Start Date End Date Parker Rocha MD [address] [facility] [address] [place] [address] PCP - General Family Medicine 04/12/18 documented as of this encounter Additional Source Comments The information contained in this document represents components of the legal health record. It is not the complete legal health record.[facility]
--- OUTSIDE RECORDS SUMMARY | 2025-07-07 10:54 | XMS_ITS | Encounter Summary ---
Author Organization [facility] Address [address] [place] [address] Phone Care Team Providers Care Credit Adjuster Name Role Phone Parker Rocha MD Primary Care Provide r Encounter Details Date Type Department Care Team ([facility] Contact Info) Description 10/13/2022 Procedure Pass [facility], [address] [facility], [address] [place] [address] Social History Tobacco Use Types Packs/Day Years [...] on filedocumented in this encounter Care Teams Credit Adjuster Relationship Specialty Start Date End Date Parker Rocha MD [address] [facility] [address] [place] [address] PCP - General Family Medicine 04/12/18 documented as of this encounter Additional Source Comments The information contained in this document represents components of the legal health record. It is not the complete legal health record.[facility]
--- OUTSIDE RECORDS SUMMARY | 2025-07-07 10:54 | XMS_ITS | Clinical Summary ---
Author Organization [facility] it Address [address] [place] [address] Care Team Providers Care Welcome Wagon Hostess Name Role Phone Kiley Donis MD Primary [...] series) 2001 Cholesterol Screening (Lipid Panel) 11/01/2022 HIV Screening 11/01/2022 Hepatitis C Screening 11/01/2022 Social Influencers of Health Screening 11/01/2022 COVID-19 Vaccine ( - 2023-2 5 season) 2024 Depression Screening 11/09/2024 Influenza Vaccine (#1) 2025 HIB Vaccines Aged [...] age to complete this topic Care Teams Welcome Wagon Hostess Relationship Specialty Start Date End Date Kiley Donis MD PCP - General Internal Medicine 09/02/22
--- OUTSIDE RECORDS SUMMARY | 2025-07-07 10:54 | XMS_ITS | Encounter Summary ---
Author Organization [facility] Address [address] [place] [address] Phone Care Team Providers Care Staple Processing Machine Operator Name Role Phone Parker Rocha MD Primary Care Provide r Encounter Details Date Type Department Care Team ([facility] Contact Info) Description 02/02/2019 Procedure Pass [facility] [address] [place] [address] Social History Tobacco Use Types Packs/Day Years [...] on filedocumented in this encounter Care Teams Staple Processing Machine Operator Relationship Specialty Start Date End Date Parker Rocha MD [address] [place] [address] PCP - General Family Medicine 04/12/18 documented as of this encounter Additional Source Comments The information contained in this document represents components of the legal health record. It is not the complete legal health record.[facility]
--- OUTSIDE RECORDS SUMMARY | 2025-07-07 10:54 | XMS_ITS | Encounter Summary ---
Author Organization [facility] Address [address] [place] [address] Phone Care Team Providers Care Gun Welder Name Role Phone Parker Rocha MD Primary Care Provide r Encounter Details Date Type Department Care Team ([facility] Contact Info) Description 10/13/2022 Procedure Pass [facility] [address] [facility], [address] [place] [address] Social History Tobacco Use Types Packs/Day Years [...] on filedocumented in this encounter Care Teams Gun Welder Relationship Specialty Start Date End Date Parker Rocha MD [address] [facility] [address] [place] [address] PCP - General Family Medicine 04/12/18 documented as of this encounter Additional Source Comments The information contained in this document represents components of the legal health record. It is not the complete legal health record.[facility]
--- OUTSIDE RECORDS SUMMARY | 2025-07-07 10:54 | XMS_ITS | Clinical Summary ---
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
== END 2025-07-07 11:12 | disposition home or self-care (01) ==
LOC: HO.HSM 10:13
PROVIDERS: PCP Family Medicine; Visit Provider Registered Nurse
DX: G35 Multiple sclerosis (principal); G43.909 Migraine, unspecified, not intractable, without status migrainosus
CPT/HCPCS: 99214

== ENCOUNTER 2025-07-07 10:12 | Outpatient (REF) | payer OTHER, MEDICAID, SELFPAY ==
[2025-07-07 11:33] LABS: MANUAL DIFF FLAG NO
[2025-07-07 12:20] LABS: Hematocrit 44.8 % (42.0-52.0); Hemoglobin 15.0 g/dl (14.0-18.0); Imm Gran Abs Auto 0.01 X10*3/uL (0.00-0.03); Imm Gran Pct Auto 0.2 % (0.0-0.4); Lymphocytes Absolute Auto 2.0 X10*3/uL (1.2-4.9); Mean Corpuscular HGB Conc 33.5 g/dl (31.0-36.0); Mean Corpuscular Hemoglobin 27.5 pg (27.0-33.0); Mean Corpuscular Volume 82.1 fL (80.0-98.0); NRBC Abs Auto 0.000 X10*3/uL (0.0-0.012); NRBC Pct Auto 0.0 /100WBC (0.0-0.2); Platelet Count 269 X10*3/uL (160-400); Red Blood Count 5.46 X10*6/uL (4.60-5.80); White Blood Count 5.5 X10*3/uL (4.8-10.8)
[2025-07-07 13:21] LABS: Alanine Aminotransferase 31 U/L (0-40); Albumin Level 4.7 g/dL (3.5-5.0); Alkaline Phosphatase 100 U/L (39-117); Aspartate Amino Transferase 27 U/L (5-37); Total Protein 7.7 g/dL (6.5-8.0)
[2025-07-08 03:58] LABS: HBS Num1 0.27 mIU/mL (0-7.99); HBc Num1 0.04 S/CO (0.00-0.79); HBsAGNum1 0.50 S/CO (0.00-0.99); Hepatitis B Surface Antigen Negative (Negative); ~Hepatitis B Surface Antibody NONREACTIVE (Nonreactive)
[2025-07-11 10:03] LABS: TS Negative Control Passed; TS Panel A 0; TS Panel B 1; TS Positive Control Passed; TSpotTB Negative (Negative)
[2025-07-11 23:12] LABS: JCV Index Value 1.49 index
== END 2025-07-07 10:13 | disposition home or self-care (01) ==
LOC: HO.LAB 10:12
PROVIDERS: PCP Family Medicine; Visit Provider Registered Nurse
DX: G35 Multiple sclerosis (principal); G40.909 Epilepsy, unspecified, not intractable, without status epilepticus; Z01.84 Encounter for antibody response examination
CPT/HCPCS: 36415; 80076; 82784; 85025; 86481; 86704; 86706; 86711; 87340

== ENCOUNTER 2025-08-02 12:58 | Outpatient (AMB) | payer OTHER, MEDICAID, SELFPAY ==
--- OUTSIDE RECORDS SUMMARY | 2010-09-20 01:00 | XMS_ITS | Encounter Summary ---
Author Organization [facility] General [facility] Address [address] [facility] [address] [place] [address] Phone Care Team Providers Care Entry Level Recruiter Name Role Phone Unavailable Primary Care Provider Unavailabl e Encounter Details Date Type Department Care Team ([facility] Contact Info) Description 09/20/2010 Hospital Encounter [facility] 55 [place] [address] Jorge Schultz MD, PhD [address] [place] [address] Social History Tobacco Use Types Packs/Day Years [...] OUTSIDE(NO INTERPRETATION) (09/20/2010 12:00 AM EST) Narrative [facility] [place] [facility] INTER[facility]ACES - 02/02/2019 12:01 PM EDT This study is for PACS storage only and not for interpretation. us Jorge Schultz MD, PhD IMG OUTSIDE IMAGING W/OUT IN TERPRETATION Final Result [facility] [place] [facility]G INTERFACES documented in this encounter Visit Diagnoses Not on filedocumented in this encounter Additional Source Comments The information contained in this document represents components of the legal health record. It is not the complete legal health record.[facility]
--- OUTSIDE RECORDS SUMMARY | 2010-12-24 01:00 | XMS_ITS | Encounter Summary ---
Author Organization [facility] Address [address] [facility] [address] [place] [address] Phone Care Team Providers Care Rolloff Truck Driver Name Role Phone Unavailable Primary Care Provider Unavailabl e Encounter Details Date Type Department Care Team ([facility] Contact Info) Description 12/24/2010 Hospital Encounter [facility] 55 [place] [address] Jorge Schultz MD, PhD [address] [place] [address] Social History Tobacco Use Types Packs/Day Years [...] (No Interpretation) (12/24/2010 12:00 AM EST) Narrative [facility] [place] [facility] INTERFACES - 02/02/2019 12:01 PM EDT This study is for PACS storage only and not for interpretation. us Jorge Schultz MD, PhD IMG OUTSIDE IMAGING W/OUT IN TERPRETATION Final Result [facility] [place] [facility] INTER[facility]ACES documented in this encounter Visit Diagnoses Not on filedocumented in this encounter Additional Source Comments The information contained in this document represents components of the legal health record. It is not the complete legal health record.[facility]
--- OUTSIDE RECORDS SUMMARY | 2013-01-19 | XMS_ITS | Encounter Summary ---
Author Organization [facility] Address [address] [facility] [address] [place] [address] Phone Care Team Providers Care Product Safety Officer Name Role Phone Unavailable Primary Care Provider Unavailabl e Encounter Details Date Type Department Care Team ([facility] Contact Info) Description 01/19/2013 Hospital Encounter [facility] 55 [place] [address] Jorge Schultz MD, PhD [address] [place] [address] Social History Tobacco Use Types Packs/Day Years [...] OUTSIDE(NO INTERPRETATION) (01/19/2013 12:00 AM EDT) Narrative [facility] [place] [place] - 02/02/2019 12:00 PM EDT This study is for PACS storage only and not for interpretation. us Jorge Schultz MD, PhD IMG OUTSIDE IMAGING W/OUT IN TERPRETATION Final Result [facility] [place] documented in this encounter Visit Diagnoses Not on filedocumented in this encounter Additional Source Comments The information contained in this document represents components of the legal health record. It is not the complete legal health record.[facility]
--- OUTSIDE RECORDS SUMMARY | 2013-01-21 | XMS_ITS | Encounter Summary ---
Author Organization [facility] Address [address] [facility] [address] [place] [address] Phone Care Team Providers Care Regroover Name Role Phone Unavailable Primary Care Provider Unavailabl e Reason for Visit * MRI/CAT Scan - Closed Specialty Diagnoses / Procedures Referred By Sharmin t Referred To Contact Procedures MRI Spine (Bone) Outside (No Interpretation) Jorge Schultz MD, PhD [address] [place] [address] Phone: tel: fax: mailto:[email or web address] Referral ID Status Reason Start Date Expiration Date Visits Re quested Visits Authorized [id number] Closed 02/02/2019 02/02/2020 1 1 Encounter Details Date Type Department Care Team ([facility] st Contact Info) Description 01/21/[address] [facility] [address] [place] [address] Jorge Schultz MD, PhD [address] [place] [phone] [email or web address] Social History Tobacco Use Types Packs/Day Years [...] (No Interpretation) (01/21/2013 12:00 AM EDT) Narrative [facility] [place] [facility] INTERFACES - 02/02/2019 12:00 PM EDT This study is for PACS storage only and not for interpretation. us Jorge Schultz MD, PhD IMG OUTSIDE IMAGING W/OUT IN TERPRETATION Final Result [facility] documented in this encounter Visit Diagnoses Not on filedocumented in this encounter Additional Source Comments The information contained in this document represents components of the legal health record. It is not the complete legal health record.[facility]
--- NOTE | 2025-08-02 13:17 | MHC.OFFVIS ---
Intake Visit Reasons: 2m/ MS Allergies Penicillins (PENICILLINS) Allergy (Unknown, Verified 05/23/25 12:16) UNKNOWN HPI Comments Details: He is feeling fine and reports no new sx. His MRI 07/01/25 compared to 2019 shows 14 new lesions , disease progression an dtwo tiny enhancing lesions. He had missed a few doses of Tecfidera. was here to review MRI results. He said he was going good and that everything is good. He initially said he had been taking Tecfidera twice a day since his last appointment, but later said he was taking medication twice a day about every other day, and once a day the other days. He still had some side effects of GI upset and occasional itchy rash that was better if he pre-medicated with Tylenol or ibuprofen, but he did not like to do this often. He denied any new MS symptoms, including new or worsening weakness, numbness or tingling, and fatigue. He denied any falls. At appointment on 05/23/2025, he reported ongoing GI upset with Tecfidera if he does not have a full stomach and had been taking medication once a day about 5-6x/week instead of twice a day due to GI side effect. He also would still get occasional itchy rash. He denied new MS symptoms. No new weakness. Left facial numbness resolved. No numbness in bottom of left foot any more. It may happen only if he is overtired or stressed. Fatigue has improved. Sleep was okay. Few occasional migraines, which may be triggered by stress or missing meal. Using Excedrin as needed which helps. GI work up was negative. Occasional low back sharp pains and tightness in back muscles. Considering spinal surgery for scoliosis. Had a son on 11/14/2023. In 08/2016, he woke up with vertigo, nausea and ataxia, continued for 7-10 days and then resolved. In 09/2016, he had an MRI of the brain which was consistent with MS. A second MRI of the brain was done in 12/2016 and showed some additional lesions. No gadolinium was used either. Subsequently, in 03/2017, he had MRI of his cervical, thoracic and lumbar spine which was inadequate because of severe kyphosis and scoliosis. He did not have an MRI with gadolinium of the brain. He was seen by Dr. Sanjana Roach at the [facility] and the was not started any medications at that time. He then had an episode where he felt some numbness in his tongue, as well as some left-sided numbness which has gotten better. He has no previous neurological symptoms prior to 08/2016. No problems with his bladder or bowel control. [facility] Medical History (Updated 08/02/25 @ 13:31 by Rogers Dawkins MD) Migraine Scoliosis Multiple sclerosis Review of Systems Const Denies chills, Denies daytime sleepiness, Denies difficulty sleeping, Denies fatigue, Denies fever(s), Denies frequent falls, Reports headache(s), Denies increased appetite, Denies poor appetite, Denies snoring, Denies weakness, Denies weight gain and Denies weight loss Eyes Denies loss of vision ENT Denies vertigo, Denies dizziness, Reports headache(s) and Denies neck pain Card Denies chest pain at rest, Denies chest pain with activity, Denies syncope, Denies leg edema, Denies palpitations, Denies dyspnea and Denies dyspnea on exertion Resp Denies cough, Denies dyspnea, Denies dyspnea on exertion and Denies snoring GI Denies abdominal pain, Denies constipation, Denies heartburn, Denies diarrhea and Denies nausea Denies urinary frequency, Denies urinary incontinence and Denies urinary urgency Musc Denies abnormal gait, Reports back pain, Denies myalgias, Denies arthralgias, Denies neck pain, Denies numbness and Denies tingling Neuro Denies abnormal gait, Denies vertigo, Denies dizziness, Denies syncope, Denies frequent falls, Reports headache(s), Denies lack of coordination, Denies loss of vision, Denies memory loss, Denies numbness, Denies Other visual disturbances, Denies restless legs, Denies seizure-like activity, Denies tingling, Denies paresthesias, Denies tremor(s) and Denies weakness Psych Denies anxiety, Denies depression, Denies auditory hallucinations, Denies memory loss and Denies visual hallucinations Endo Denies fatigue and Denies palpitations Physical Exam Const Other: General Appearance:? normal, in no acute distress. Heart:? S1, S2 normal, no murmurs. Lungs:? clear anteriorly and posteriorly. Musculoskeletal:? normal. Extremities:? no edema. Psych:? alert, oriented, cognitive function intact, cooperative with exam. Neuro Other: Abnormal Neurological Findings:?Kyphoscoliosis of the thoracic spine. Left shoulder abduction weakness. Atrophy of left deltoid and right leg. Weakness of dorsiflexion and plantarflexion of the right foot. Left-sided hyperreflexia in the upper and lower extremity with extensor plantar response Mental Status: alert and oriented X 3. Normal attention, orientation, memory, and affect. Cranial Nerves: Pupils are equal, round, and reactive to light. External ocular muscles are intact. Visual valles are full, no ptosis. Face is symmetrical, no facial weakness or droop. Facial sensations are normal. Tongue protrudes in midline. Palate elevates symmetrically. Shoulder shrugging is normal Motor Examination: As above. Sensory Exam: Normal light touch, temperature, pinprick, vibration, and joint-position sensations. Rhomberg sign is absent. Coordination: No ataxia. No titubation. Gait Exam: With limp Cerebellar Signs: [id number] is okay. Extrapyramidal System: No tremor, rigidity with normal facial expressions. No bradykinesia. No bradyphrenia. Normal arm swing and posture. No propulsion or retropulsion. Speech: Normal. No dysphasia or dysarthria. Results Reviewed Results Reviewed: 07/01/25 MRI reviewed. compared to MRI of 2020 there is progression of MS plaques with about 14 new lesions including 2 small enhancing lesions. Assessment & Plan Assessment & Plan (1) Multiple sclerosis: Comment: Will bring the discs from the MRI at [facility] on 08/17/23 tp compare with 07/01/25 MRI as they comapred it to the 2020 MRI. [employer] approval is in progress. Code(s): G35 - Multiple sclerosis Category: Medical (2) Migraine: Code(s): G43.909 - Migraine, unspecified, not intractable, without status migrainosus Category: Medical Qualifiers: Migraine type: unspecified Status migrainosus presence: without status migrainosus Intractability: not intractable Qualified Code(s): G43.909 - Migraine, unspecified, not intractable, without status migrainosus Plan: Will bring the discs from the MRI at [facility] on 08/17/23 tp compare with 07/01/25 MRI as they comapred it to the 2020 MRI. Ocrevus approval is in progress. In the meantime, continue Tecfidera (3) Scoliosis: Code(s): M41.9 - Scoliosis, unspecified Category: Medical Plan Will bring the discs from the MRI at [facility] on 08/17/23 tp compare with 07/01/25 MRI as they comapred it to the 2019 MRI. Ocrevus approval is in progress. In the meantime, continue Tecfidera Coding Level of Care Code Est Pt Level 4 (29745) Diagnoses Multiple sclerosis G35 Migraine without status migrainosus, not intractable, unspecified migraine type G43.909 Migraine type: unspecified Status migrainosus presence: without status migrainosus Intractability: not intractable Scoliosis M41.9
--- OUTSIDE RECORDS SUMMARY | 2025-08-02 15:25 | XMS_ITS | Clinical Summary ---
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
--- OUTSIDE RECORDS SUMMARY | 2025-08-02 15:25 | XMS_ITS | Encounter Summary ---
Author Organization [facility] Address [address] [place] [address] Phone Care Team Providers Care Film Examiner Name Role Phone Parker Rocha MD Primary Care Provide r Encounter Details Date Type Department Care Team ([facility] Contact Info) Description 09/11/2021 Procedure Pass MRI, [facility] [address] [facility], [address] [place] [id number] Social History Tobacco Use Types Packs/Day Years [...] on filedocumented in this encounter Care Teams Film Examiner Relationship Specialty Start Date End Date Parker Rocha MD [address] [facility] [address] [place] [address] PCP - General Family Medicine 04/12/18 documented as of this encounter Additional Source Comments The information contained in this document represents components of the legal health record. It is not the complete legal health record.[facility]
--- OUTSIDE RECORDS SUMMARY | 2025-08-02 15:25 | XMS_ITS | Encounter Summary ---
Author Organization [facility] Address [address] [place] [address] Phone Care Team Providers Care Motor Racer Name Role Phone Parker Rocha MD Primary Care Provide r Encounter Details Date Type Department Care Team ([facility] Contact Info) Description 02/02/2019 Procedure Pass [facility] [address] [place] [address] Social History Tobacco Use Types Packs/Day Years [...] on filedocumented in this encounter Care Teams Motor Racer Relationship Specialty Start Date End Date Parker Rocha MD [address] [facility] [address] [place] [address] PCP - General Family Medicine 04/12/18 documented as of this encounter Additional Source Comments The information contained in this document represents components of the legal health record. It is not the complete legal health record.[facility]
--- OUTSIDE RECORDS SUMMARY | 2025-08-02 15:25 | XMS_ITS | Encounter Summary ---
Author Organization [facility] Address [address] [place] [address] Phone Care Team Providers Care Fish Hatchery Assistant Name Role Phone Parker Rocha MD Primary Care Provide r Encounter Details Date Type Department Care Team ([facility] Contact Info) Description 10/13/2022 Procedure Pass [facility], [address] [facility], [address] [place] [address] Social History Tobacco Use Types Packs/Day Years [...] on filedocumented in this encounter Care Teams Fish Hatchery Assistant Relationship Specialty Start Date End Date Parker Rocha MD [address] [facility] [address] [place] [address] PCP - General Family Medicine 04/12/18 documented as of this encounter Additional Source Comments The information contained in this document represents components of the legal health record. It is not the complete legal health record.[facility]
--- OUTSIDE RECORDS SUMMARY | 2025-08-02 15:25 | XMS_ITS | Clinical Summary ---
Author Organization [address] [facility] Address [address] [place] [address] Phone Care Team Providers Care Fermenter Name Role Phone Kiley Donis MD Primary [...] 11/01/2022 Social Influencers of Health Screening 11/01/2022 Depression Screening 11/09/2024 COVID-19 Vaccine (2023-2 5 season) 2025 Influenza Vaccine (#1) 2025 HIB Vaccines Aged [...] age to complete this topic Care Teams Fermenter Relationship Specialty Start Date End Date Kliey Donis MD PCP - General Internal Medicine 09/02/22
--- OUTSIDE RECORDS SUMMARY | 2025-08-02 15:25 | XMS_ITS | Encounter Summary ---
Author Organization [facility] Address [address] [place] [address] Phone Care Team Providers Care Workforce Specialist Name Role Phone Parker Rocha MD Primary Care Provide r Encounter Details Date Type Department Care Team ([facility] Contact Info) Description 10/13/2022 Procedure Pass [facility] [place], [address] [facility], [address] [place] [address] Social History Tobacco Use Types Packs/Day Years [...] on filedocumented in this encounter Care Teams Workforce Specialist Relationship Specialty Start Date End Date Parker Rocha MD [address] [facility] [address] [place] [address] PCP - General Family Medicine 04/12/18 documented as of this encounter Additional Source Comments The information contained in this document represents components of the legal health record. It is not the complete legal health record.[facility]
--- OUTSIDE RECORDS SUMMARY | 2025-08-02 15:25 | XMS_ITS | Encounter Summary ---
Author Organization [facility] Address [address] [place] [address] Phone Care Team Providers Care Manager Respiratory Name Role Phone Parker Rocha MD Primary Care Provide r Encounter Details Date Type Department Care Team ([facility] Contact Info) Description 02/02/2019 Procedure Pass [facility] [address] [place] [address] Social History Tobacco Use Types Packs/Day Years [...] on filedocumented in this encounter Care Teams Manager Respiratory Relationship Specialty Start Date End Date Parker Rocha MD [address] [facility] [address] [place] [address] PCP - General Family Medicine 04/12/18 documented as of this encounter Additional Source Comments The information contained in this document represents components of the legal health record. It is not the complete legal health record.[facility]
== END 2025-08-02 14:51 | disposition home or self-care (01) ==
LOC: HO.HSM 12:58
PROVIDERS: PCP Family Medicine; Visit Provider Psychiatry & Neurology Neurology
DX: G35 Multiple sclerosis (principal); G43.909 Migraine, unspecified, not intractable, without status migrainosus; M41.9 Scoliosis, unspecified
CPT/HCPCS: 99214

== ENCOUNTER → 2025-08-16 09:57 | Outpatient (AMB) | payer OTHER, MEDICAID, SELFPAY ==
--- NOTE | 2025-08-16 09:59 | A.OFFVIS_ITS ---
Intake Visit Reasons: 2-3 weeks Allergies Penicillins (PENICILLINS) Allergy (Unknown, Verified 05/23/25 12:16) UNKNOWN HPI Comments Details: He is feeling fine and reports no new sx. His MRI 07/01/25 compared to 2019 shows 14 new lesions , disease progression an dtwo tiny enhancing lesions. He had missed a few doses of Tecfidera. was here to review MRI results. He said he was going good and that everything is good. He initially said he had been taking Tecfidera twice a day since his last appointment, but later said he was taking medication twice a day about every other day, and once a day the other days. He still had some side effects of GI upset and occasional itchy rash that was better if he pre-medicated with Tylenol or ibuprofen, but he did not like to do this often. He denied any new MS symptoms, including new or worsening weakness, numbness or tingling, and fatigue. He denied any falls. At appointment on 05/23/2025, he reported ongoing GI upset with Tecfidera if he does not have a full stomach and had been taking medication once a day about 5-6x/week instead of twice a day due to GI side effect. He also would still get occasional itchy rash. He denied new MS symptoms. No new weakness. Left facial numbness resolved. No numbness in bottom of left foot any more. It may happen only if he is overtired or stressed. Fatigue has improved. Sleep was okay. Few occasional migraines, which may be triggered by stress or missing meal. Using Excedrin as needed which helps. GI work up was negative. Occasional low back sharp pains and tightness in back muscles. Considering spinal surgery for scoliosis. Had a son on 11/14/2023. In 08/2016, he woke up with vertigo, nausea and ataxia, continued for 7-10 days and then resolved. In 09/2016, he had an MRI of the brain which was consistent with MS. A second MRI of the brain was done in 12/2016 and showed some additional lesions. No gadolinium was used either. Subsequently, in 03/2017, he had MRI of his cervical, thoracic and lumbar spine which was inadequate because of severe kyphosis and scoliosis. He did not have an MRI with gadolinium of the brain. He was seen by Dr. Sanjana Roach at the [facility] and the was not started any medications at that time. He then had an episode where he felt some numbness in his tongue, as well as some left-sided numbness which has gotten better. He has no previous neurological symptoms prior to 08/2016. No problems with his bladder or bowel control. [facility] Medical History (Updated 08/16/25 @ 10:17 by Rogers Dawkins MD) Migraine Scoliosis Multiple sclerosis Review of Systems Const Denies chills, Denies daytime sleepiness, Denies difficulty sleeping, Denies fatigue, Denies fever(s), Denies frequent falls, Reports headache(s), Denies increased appetite, Denies poor appetite, Denies snoring, Denies weakness, Denies weight gain and Denies weight loss Eyes Denies loss of vision ENT Denies vertigo, Denies dizziness, Reports headache(s) and Denies neck pain Card Denies chest pain at rest, Denies chest pain with activity, Denies syncope, Denies leg edema, Denies palpitations, Denies dyspnea and Denies dyspnea on exertion Resp Denies cough, Denies dyspnea, Denies dyspnea on exertion and Denies snoring GI Denies abdominal pain, Denies constipation, Denies heartburn, Denies diarrhea and Denies nausea Denies urinary frequency, Denies urinary incontinence and Denies urinary urgency Musc Denies abnormal gait, Reports back pain, Denies myalgias, Denies arthralgias, Denies neck pain, Denies numbness and Denies tingling Neuro Denies abnormal gait, Denies vertigo, Denies dizziness, Denies syncope, Denies frequent falls, Reports headache(s), Denies lack of coordination, Denies loss of vision, Denies memory loss, Denies numbness, Denies Other visual disturbances, Denies restless legs, Denies seizure-like activity, Denies tingling, Denies paresthesias, Denies tremor(s) and Denies weakness Psych Denies anxiety, Denies depression, Denies auditory hallucinations, Denies memory loss and Denies visual hallucinations Endo Denies fatigue and Denies palpitations Physical Exam Const Other: General Appearance:? normal, in no acute distress. Heart:? S1, S2 normal, no murmurs. Lungs:? clear anteriorly and posteriorly. Musculoskeletal:? normal. Extremities:? no edema. Psych:? alert, oriented, cognitive function intact, cooperative with exam. Neuro Other: Abnormal Neurological Findings:?Kyphoscoliosis of the thoracic spine. Left shoulder abduction weakness. Atrophy of left deltoid and right leg. Weakness of dorsiflexion and plantarflexion of the right foot. Left-sided hyperreflexia in the upper and lower extremity with extensor plantar response Mental Status: alert and oriented X 3. Normal attention, orientation, memory, and affect. Cranial Nerves: Pupils are equal, round, and reactive to light. External ocular muscles are intact. Visual valles are full, no ptosis. Face is symmetrical, no facial weakness or droop. Facial sensations are normal. Tongue protrudes in midline. Palate elevates symmetrically. Shoulder shrugging is normal Motor Examination: As above. Sensory Exam: Normal light touch, temperature, pinprick, vibration, and joint- position sensations. Rhomberg sign is absent. Coordination: No ataxia. No titubation. Gait Exam: With limp Cerebellar Signs: [id number] is okay. Extrapyramidal System: No tremor, rigidity with normal facial expressions. No bradykinesia. No bradyphrenia. Normal arm swing and posture. No propulsion or retropulsion. Speech: Normal. No dysphasia or dysarthria. Assessment & Plan Assessment & Plan (1) Multiple sclerosis: Comment: Reviewed MRI at [facility] on 08/17/23 to compare with 07/01/25 MRI but unable to open the latter. Have asked him to take it back to [facility] and then have them compare the latest MRI with the [facility] MRI from 08/17/2023 and to put an addendum on the report. They had previously compared it to the 2019 MRI. Ocrevus has been approved. Code(s): G35 - Multiple sclerosis Category: Medical (2) Migraine: Code(s): G43.909 - Migraine, unspecified, not intractable, without status migrainosus Category: Medical Qualifiers: Migraine type: unspecified Status migrainosus presence: without status migrainosus Intractability: not intractable Qualified Code(s): G43.909 - Migraine, unspecified, not intractable, without status migrainosus Plan: Will bring the discs from the MRI at [facility] on 08/17/23 tp compare with 07/01/25 MRI as they comapred it to the 2020 MRI. Ocrevus approval is in progress. In the meantime, continue Tecfidera (3) Scoliosis: Code(s): M41.9 - Scoliosis, unspecified Category: Medical Plan Continue Tecfidera. Will bring in an addendum to the MRI report next week and then we will decide whether he should start the Ocrevus. Coding Level of Care Code Est Pt Level 4 (25348) Diagnoses Multiple sclerosis G35 Migraine without status migrainosus, not intractable, unspecified migraine type G43.909 Migraine type: unspecified Status migrainosus presence: without status migrainosus Intractability: not intractable Scoliosis M41.9
== END ==
LOC: HO.HSM 09:58
PROVIDERS: PCP Family Medicine; Visit Provider Psychiatry & Neurology Neurology
DX: G35.D Multiple sclerosis, unspecified (principal); G43.909 Migraine, unspecified, not intractable, without status migrainosus; M41.9 Scoliosis, unspecified
CPT/HCPCS: 99214

== ENCOUNTER 2025-08-23 09:46 | Outpatient (AMB) | payer OTHER, MEDICAID, SELFPAY ==
--- OUTSIDE RECORDS SUMMARY | 2010-09-20 01:00 | XMS_ITS | Encounter Summary ---
Author Organization [facility] Address [address] [facility] [address] [place] [address] Phone Care Team Providers Care Boilermaker Name Role Phone Unavailable Primary Care Provider Unavailabl e Encounter Details Date Type Department Care Team ([facility] Contact Info) Description 09/20/2010 Hospital Encounter [facility] [address] [place] [address] Jorge Schultz MD, PhD [address] [place] [address] [email or web address] Social History Tobacco Use Types Packs/Day Years Used Date Smoking Tobacco: Never Smokeless Tobacco: Never Education Answer Date Recorded Are you interested in more education? Not on sonam e 03/06/2023 Are you concerned about learning? Not on file 03/06/2023 No 03/06/2023 No 03/06/2023 Digital Access Answer Date Recorded No 04/01/2023 No 04/01/2023 No 04/01/2023 Reliable internet access at home? Not on file 04/01/2023 Device with a working camera? Not on file Sex and Gender Information Value Date Recorded Sex Assigned at Male 09/11/2021 7:19 AM EDT Legal Sex Male 12:53 PM EDT Gender Identity Male 09/19/2021 12:06 PM EST Sexual Orientation Not on file documented as of this encounter Plan of Treatment Not on file documented as of this encounter Procedures Procedure Name Priority Date/Time Associated Diagnosis Comments XR SPINE OUTSIDE (NO INTERPRETATION) Routine 09/20/2010 12:00 AM EST documented in this encounter Results * XR SPINE OUTSIDE(NO INTERPRETATION) (09/20/2010 12:00 AM EST) Narrative [facility] [place] - 02/02/2019 12:01 PM EDT This study is for PACS storage only and not for interpretation. us Jorge Schultz MD, PhD IMG OUTSIDE IMAGING W/OUT IN TERPRETATION Final Result [facility] documented in this encounter Visit Diagnoses Not on filedocumented in this encounter Additional Source Comments The information contained in this document represents components of the legal health record. It is not the complete legal health record.[facility]
--- OUTSIDE RECORDS SUMMARY | 2010-12-24 01:00 | XMS_ITS | Encounter Summary ---
Author Organization [facility] Address [address] [facility] [address] [place] [address] Phone Care Team Providers Care Bulk Receiver Name Role Phone Unavailable Primary Care Provider Unavailabl e Encounter Details Date Type Department Care Team ([facility] Contact Info) Description 12/24/2010 Hospital Encounter [facility] 55 [place] [address] Jorge Schultz MD, PhD [address] [place] [address] Social History Tobacco Use Types Packs/Day Years [...] (No Interpretation) (12/24/2010 12:00 AM EST) Narrative [facility] [place] - 02/02/2019 12:01 PM EDT This study is for PACS storage only and not for interpretation. us Jorge Schultz MD, PhD IMG OUTSIDE IMAGING W/OUT IN TERPRETATION Final Result [facility] [place] documented in this encounter Visit Diagnoses Not on filedocumented in this encounter Additional Source Comments The information contained in this document represents components of the legal health record. It is not the complete legal health record.[facility]
--- OUTSIDE RECORDS SUMMARY | 2013-01-19 | XMS_ITS | Encounter Summary ---
Author Organization [facility] Address [address] [facility] [address] [place] [address] Phone Care Team Providers Care Casting Plug Assembler Name Role Phone Unavailable Primary Care Provider Unavailabl e Encounter Details Date Type Department Care Team ([facility] Contact Info) Description 01/19/2013 Hospital Encounter [facility] 55 [place] [address] Jorge Schultz MD, PhD [address] [place] [address] Social History Tobacco Use Types Packs/Day Years [...] Comments XR SPINE OUTSIDE (NO INTERPRETATION) Routine 01/19/2013 12:00 AM EDT documented in this encounter Results * XR SPINE OUTSIDE(NO INTERPRETATION) (01/19/2013 12:00 AM EDT) Narrative [facility] [place] [facility] - 02/02/2019 12:00 PM EDT This study is for PACS storage only and not for interpretation. us Jorge Schultz MD, PhD IMG OUTSIDE IMAGING W/OUT IN TERPRETATION Final Result [facility] documented in this encounter Visit Diagnoses Not on filedocumented in this encounter Additional Source Comments The information contained in this document represents components of the legal health record. It is not the complete legal health record.[facility]
--- OUTSIDE RECORDS SUMMARY | 2013-01-21 | XMS_ITS | Encounter Summary ---
Author Organization [facility] Address [address] [facility] [address] [place] [address] Phone Care Team Providers Care Church Official Name Role Phone Unavailable Primary Care Provider Unavailabl e Reason for Visit * MRI/CAT Scan - Closed Specialty Diagnoses / Procedures Referred By Sharmin t Referred To Contact Procedures MRI Spine (Bone) Outside (No Interpretation) Jorge Schultz MD, PhD [address] [place] [address] Phone: tel: fax: mailto:[email or web address] Referral ID Status Reason Start Date Expiration Date Visits Re quested Visits Authorized [id number] Closed 02/02/2019 02/02/2020 1 1 Encounter Details Date Type Department Care Team ([facility] st Contact Info) Description 01/21/2013 Hospital Encounter [facility] [address] [place] [address] Jorge Schultz MD, PhD [address] [place] [phone] [email or web address] Social History Tobacco Use Types Packs/Day Years [...] with a working camera? Not on file 05 / Sex and Gender Information Value Date Recorded Sex Assigned at Male 09/11/2021 7:19 AM EDT Legal Sex Male 12:53 PM EDT Gender Identity Male 09/19/2021 12:06 PM EST Sexual Orientation Not on file documented as of this encounter Plan of Treatment Not on file documented as of this encounter Procedures Procedure Name Priority Date/Time Associated Diagnosis Comments MRI SPINE MUSCULOSKELETAL FOCUS OUTSIDE (NO INTERPRETATION) Routine 01/21/2013 12:00 AM EDT documented in this encounter Results * MRI Spine (Bone) Outside (No Interpretation) (01/21/2013 12:00 AM EDT) Narrative [facility] [place] [facility] INTER[facility]ACES - 02/02/2019 12:00 PM EDT This study is for PACS storage only and not for interpretation. us Jorge Schultz MD, PhD IMG OUTSIDE IMAGING W/OUT IN TERPRETATION Final Result [facility] INTER[facility]AC[facility] documented in this encounter Visit Diagnoses Not on filedocumented in this encounter Additional Source Comments The information contained in this document represents components of the legal health record. It is not the complete legal health record.[facility]
--- NOTE | 2025-08-23 10:10 | A.OFFVIS_ITS ---
Intake Visit Reasons: MRI Review Allergies Penicillins (PENICILLINS) Allergy (Unknown, Verified 05/23/25 12:16) UNKNOWN HPI Comments Details: His current MRI that was done on 07/01/2025 has now been compared to the previous MRI from [facility] from 08/17/2023. Compared to that study multiple supratentorial flare white matter hyperintensities are now present and more pronounced and number compared to that study prior to that the lesions had been stable from January 27, 2020 to August 28, 2023 but since then there has been some progression so we will be switching him from Tecfidera to Ocrevus. He is feeling fine and reports no new sx. His MRI 07/01/25 compared to 2019 shows 14 new lesions , disease progression and two tiny enhancing lesions. He had missed a few doses of Tecfidera. was here to review MRI results. He said he was going good and that everything is good. He initially said he had been taking Tecfidera twice a day since his last appointment, but later said he was taking medication twice a day about every other day, and once a day the other days. He still had some side effects of GI upset and occasional itchy rash that was better if he pre-medicated with Tylenol or ibuprofen, but he did not like to do this often. He denied any new MS symptoms, including new or worsening weakness, numbness or tingling, and fatigue. He denied any falls. At appointment on 05/23/2025, he reported ongoing GI upset with Tecfidera if he does not have a full stomach and had been taking medication once a day about 5-6x/week instead of twice a day due to GI side effect. He also would still get occasional itchy rash. He denied new MS symptoms. No new weakness. Left facial numbness resolved. No numbness in bottom of left foot any more. It may happen only if he is overtired or stressed. Fatigue has improved. Sleep was okay. Few occasional migraines, which may be triggered by stress or missing meal. Using Excedrin as needed which helps. GI work up was negative. Occasional low back sharp pains and tightness in back muscles. Considering spinal surgery for scoliosis. Had a son on 11/14/2023. In 08/2016, he woke up with vertigo, nausea and ataxia, continued for 7-10 days and then resolved. In 09/2016, he had an MRI of the brain which was consistent with MS. A second MRI of the brain was done in 12/2016 and showed some additional lesions. No gadolinium was used either. Subsequently, in 03/2017, he had MRI of his cervical, thoracic and lumbar spine which was inadequate because of severe kyphosis and scoliosis. He did not have an MRI with gadolinium of the brain. He was seen by Dr. Sanjana Roach at the [facility] and the was not started any medications at that time. He then had an episode where he felt some numbness in his tongue, as well as some left-sided numbness which has gotten better. He has no previous neurological symptoms prior to 08/2016. No problems with his bladder or bowel control. [facility] Medical History (Updated 08/16/25 @ 10:17 by Rogers Dawkins MD) Migraine Scoliosis Multiple sclerosis Review of Systems Const Denies chills, Denies daytime sleepiness, Denies difficulty sleeping, Denies fatigue, Denies fever(s), Denies frequent falls, Reports headache(s), Denies increased appetite, Denies poor appetite, Denies snoring, Denies weakness, Denies weight gain and Denies weight loss Eyes Denies loss of vision ENT Denies vertigo, Denies dizziness, Reports headache(s) and Denies neck pain Card Denies chest pain at rest, Denies chest pain with activity, Denies syncope, Denies leg edema, Denies palpitations, Denies dyspnea and Denies dyspnea on exertion Resp Denies cough, Denies dyspnea, Denies dyspnea on exertion and Denies snoring GI Denies abdominal pain, Denies constipation, Denies heartburn, Denies diarrhea and Denies nausea Denies urinary frequency, Denies urinary incontinence and Denies urinary urgency Musc Denies abnormal gait, Reports back pain, Denies myalgias, Denies arthralgias, Denies neck pain, Denies numbness and Denies tingling Neuro Denies abnormal gait, Denies vertigo, Denies dizziness, Denies syncope, Denies frequent falls, Reports headache(s), Denies lack of coordination, Denies loss of vision, Denies memory loss, Denies numbness, Denies Other visual disturbances, Denies restless legs, Denies seizure-like activity, Denies tingling, Denies paresthesias, Denies tremor(s) and Denies weakness Psych Denies anxiety, Denies depression, Denies auditory hallucinations, Denies memory loss and Denies visual hallucinations Endo Denies fatigue and Denies palpitations Physical Exam Const Other: General Appearance:? normal, in no acute distress. Heart:? S1, S2 normal, no murmurs. Lungs:? clear anteriorly and posteriorly. Musculoskeletal:? normal. Extremities:? no edema. Psych:? alert, oriented, cognitive function intact, cooperative with exam. Neuro Other: Abnormal Neurological Findings:?Kyphoscoliosis of the thoracic spine. Left shoulder abduction weakness. Atrophy of left deltoid and right leg. Weakness of dorsiflexion and plantarflexion of the right foot. Left-sided hyperreflexia in the upper and lower extremity with extensor plantar response Mental Status: alert and oriented X 3. Normal attention, orientation, memory, and affect. Cranial Nerves: Pupils are equal, round, and reactive to light. External ocular muscles are intact. Visual valles are full, no ptosis. Face is symmetrical, no facial weakness or droop. Facial sensations are normal. Tongue protrudes in midline. Palate elevates symmetrically. Shoulder shrugging is normal Motor Examination: As above. Sensory Exam: Normal light touch, temperature, pinprick, vibration, and joint-position sensations. Rhomberg sign is absent. Coordination: No ataxia. No titubation. Gait Exam: With limp Cerebellar Signs: [id number] is okay. Extrapyramidal System: No tremor, rigidity with normal facial expressions. No bradykinesia. No bradyphrenia. Normal arm swing and posture. No propulsion or retropulsion. Speech: Normal. No dysphasia or dysarthria. Assessment & Plan Assessment & Plan (1) Multiple sclerosis: Comment: Reviewed MRI at [facility] on 08/17/23 to compare with 07/01/25 MRI but unable to open the latter. Have asked him to take it back to [facility] and then have them compare the latest MRI with the [facility] MRI from 08/17/2023 and to put an addendum on the report. They had previously compared it to the 2020 MRI. Ocrevus has been approved. Code(s): G35 - Multiple sclerosis Category: Medical (2) Migraine: Code(s): G43.909 - Migraine, unspecified, not intractable, without status migrainosus Category: Medical Qualifiers: Migraine type: unspecified Status migrainosus presence: without status migrainosus Intractability: not intractable Qualified Code(s): G43.909 - Migraine, unspecified, not intractable, without status migrainosus Plan: Will bring the discs from the MRI at [facility] on 08/17/23 tp compare with 07/01/25 MRI as they comapred it to the 2019 MRI. Ocrevus approval is in progress. In the meantime, continue Tecfidera (3) Scoliosis: Code(s): M41.9 - Scoliosis, unspecified Category: Medical Plan He will discontinue Tecfidera. Start Ocrevus infusions Coding Level of Care Code Est Pt Level 4 (59117) Diagnoses Multiple sclerosis G35 Migraine without status migrainosus, not intractable, unspecified migraine type G43.909 Migraine type: unspecified Status migrainosus presence: without status migrainosus Intractability: not intractable Scoliosis M41.9
--- OUTSIDE RECORDS SUMMARY | 2025-08-23 11:14 | XMS_ITS | Clinical Summary ---
Author Organization [address] [facility] Address [address] [place] [address] Phone Care Team Providers Care Inspector Set Up And Lay Out Name Role Phone Kiley Donis MD Primary [...] Health Maintenance Due Date Last Done Comments HPV Vaccines (1 - 3-dose SCD M series) 2009 DTaP,Tdap,and Td Vaccines (3 - Td or Tdap) 05/24/2020 05/24/2010, 04/23/2010 Cholesterol Screening (Lipid Panel) 11/01/2022 HIV Screening 11/01/2022 Hepatitis C Screening 11/01/2022 Social Influencers of Health Screening 11/01/2022 Depression Screening 11/09/2024 COVID-19 Vaccine (2023-2 5 season) 2025 Influenza Vaccine (#1) 2025 12/14/2012 RSV Immunization Adult Patients (1 - 1-dose 75+ series) 2057 MMR Vaccines Aged Out 05/24/2010, 04/23/2010 No longer eligible based on patient's age to complete this topic Hepatitis B Vaccines Completed 12/06/2010, 10/08/2010, 05/24/2010 HIB Vaccines Aged Out No longer eligi [...] age to complete this topic Pneumococcal Vaccine: Pediatrics (0 to 5 Years) and At-Risk Patients (6 to 49 Years) Aged Out No longer eligible b ased on patient's age to complete this topic RSV Immunization Patients Under 20 months Aged Out No longer eligible b ased on patient's age to complete this topic Varicella Vaccines Aged Out No longer eligible based on patient's age to complete this topic Care Teams Inspector Set Up And Lay Out Relationship Specialty Start Date End Date Kiley Donis MD PCP - General Internal Medicine 09/02/22
--- OUTSIDE RECORDS SUMMARY | 2025-08-23 11:15 | XMS_ITS | Clinical Summary ---
Author Organization [facility] Address [address] [place] [id number] Phone Care Team Providers Care Transformer Builder Name Role Phone Parker Rocha MD Primary [...] HIV ONE-TIME SCREENING (18-6 5 YEARS) 2000 INFLUENZA VACCINE (#1) 2025 6, 12/14/2012 COVID-19 VACCINE (2024-2 6 season) 2025 02/18/2021 Adult Td,Tdap Booster 01/08/2030 01/09/2020 , [...] topic Medical Devices Not on file Insurance [facility] Care Teams Transformer Builder Relationship Specialty Start Date End Date Parker Rocha MD [address] [address] PCP - General Family Medicine 04/12/18 Additional Source Comments The information contained in this document represents components of the legal health record. It is not the complete legal health record.[facility]
--- OUTSIDE RECORDS SUMMARY | 2025-08-23 11:15 | XMS_ITS | Clinical Summary ---
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
--- OUTSIDE RECORDS SUMMARY | 2025-08-23 11:15 | XMS_ITS | Encounter Summary ---
Author Organization [facility] Address [address] [place] [address] Phone Care Team Providers Care Access Coordinator Name Role Phone Parker Rocha MD Primary Care Provide r Encounter Details Date Type Department Care Team ([facility] Contact Info) Description 09/11/2021 Procedure Pass MRI, [facility] [address], [address] [place] [id number] Social History Tobacco Use Types Packs/Day Years [...] on filedocumented in this encounter Care Teams Access Coordinator Relationship Specialty Start Date End Date Parker Rocha MD [address] [facility] [address] [place] [address] PCP - General Family Medicine 04/12/18 documented as of this encounter Additional Source Comments The information contained in this document represents components of the legal health record. It is not the complete legal health record.[facility]
--- OUTSIDE RECORDS SUMMARY | 2025-08-23 11:16 | XMS_ITS | Encounter Summary ---
Author Organization [facility] Address [address] [place] [address] Phone Care Team Providers Care Area Secretary Name Role Phone Parker Rocha MD Primary Care Provide r Encounter Details Date Type Department Care Team ([facility] Contact Info) Description 10/13/2022 Procedure Pass [facility], [address] [facility], [address] [place] [address] Social History Tobacco Use Types Packs/Day Years [...] on filedocumented in this encounter Care Teams Area Secretary Relationship Specialty Start Date End Date Parker Rocha MD [address] [facility] [address] [place] [address] PCP - General Family Medicine 04/12/18 documented as of this encounter Additional Source Comments The information contained in this document represents components of the legal health record. It is not the complete legal health record.[facility]
--- OUTSIDE RECORDS SUMMARY | 2025-08-23 11:16 | XMS_ITS | Encounter Summary ---
Author Organization [facility] Address [address] [place] [address] Phone Care Team Providers Care Doctor Naturopathic Name Role Phone Parker Rocha MD Primary Care Provide r Encounter Details Date Type Department Care Team ([facility] Contact Info) Description 02/02/2019 Procedure Pass [facility] [address] [place] [address] Social History Tobacco Use Types Packs/Day Years [...] on filedocumented in this encounter Care Teams Doctor Naturopathic Relationship Specialty Start Date End Date Parker Rocha MD [address] [facility] [address] [place] [address] PCP - General Family Medicine 04/12/18 documented as of this encounter Additional Source Comments The information contained in this document represents components of the legal health record. It is not the complete legal health record.[facility]
--- OUTSIDE RECORDS SUMMARY | 2025-08-23 11:16 | XMS_ITS | Encounter Summary ---
Author Organization [facility] Address [address] [place] [address] Phone Care Team Providers Care Wheel Fitter Name Role Phone Parker Rocha MD Primary Care Provide r Encounter Details Date Type Department Care Team ([facility] Contact Info) Description 02/02/2019 Procedure Pass [facility] [address] [place] [address] Social History Tobacco Use Types Packs/Day Years [...] on filedocumented in this encounter Care Teams Wheel Fitter Relationship Specialty Start Date End Date Parker Rocha MD [address] [facility] [address] [place] [address] PCP - General Family Medicine 04/12/18 documented as of this encounter Additional Source Comments The information contained in this document represents components of the legal health record. It is not the complete legal health record.[facility]
--- OUTSIDE RECORDS SUMMARY | 2025-08-23 11:16 | XMS_ITS | Encounter Summary ---
Author Organization [facility] Address [address] [place] [address] Phone Care Team Providers Care Pinsetter Mechanic Automatic Name Role Phone Parker Rocha MD Primary Care Provide r Encounter Details Date Type Department Care Team ([facility] Contact Info) Description 10/13/2022 Procedure Pass [facility], [address] [facility], [address], [address] [place] [address] Social History Tobacco Use Types Packs/Day Years [...] on filedocumented in this encounter Care Teams Pinsetter Mechanic Automatic Relationship Specialty Start Date End Date Parker Rocha MD [address] [facility] [address] [place] [address] PCP - General Family Medicine 04/12/18 documented as of this encounter Additional Source Comments The information contained in this document represents components of the legal health record. It is not the complete legal health record.[facility]
== END 2025-08-23 10:29 | disposition home or self-care (01) ==
LOC: HO.HSM 09:47
PROVIDERS: PCP Family Medicine; Visit Provider Psychiatry & Neurology Neurology
DX: G35.D Multiple sclerosis, unspecified (principal); G43.909 Migraine, unspecified, not intractable, without status migrainosus; M41.9 Scoliosis, unspecified
CPT/HCPCS: 99214